=== PATIENT | female | born 1980 | race Caucasian/White ===

== ENCOUNTER 2016-05-16 18:12 | Emergency (ER) | payer OTHER ==
[2016-05-16] MEDS ORDERED: NITROFURANTOIN (MACROBID) 100 MG CAP As Ordered ONE (20:53)
--- NOTE | 2016-05-16 21:02 | EDDOCDS ---
Nurse's Notes [facility] Name: Marleny Bazan Age: 35 yrs Sex: Female : 1980 Arrival Date: 05/16/2016 Time: 18:12 Bed TR7 Private MD: DUY MENDEZ Diagnosis: Urinary tract infection, site not specified; related conditions, unspecified, first trimester Presentation: 05/16 18:18 Presenting complaint: Patient states: Patient states that she has been cramping and jmb spotting for the past four days. Patient reports also being late for her period. Risk factors: the patient reports a small or scant amount of vaginal bleeding. Adult Sepsis Screening: The patient does not have new or worsening altered mentation. Patient's respiratory rate is less than 22. Systolic blood pressure is greater than 100. Patient has a qSOFA score of 0- Negative Sepsis Screen. Suicide/Homicide risk assessment- the patient denies having any suicidal and/or homicidal ideations and does not present with any other emotional, behavioral or mental health complaints. Status: Patient is not a facility service manager or dependent. Transition of care: patient was not received from another setting of care. 18:18 Acuity: YANCY Level 3 b 18:18 Method Of Arrival: Walkin/Carried/Asstd [facility] Triage Assessment: 18:18 General: Appears in no apparent distress. General: Behavior is appropriate for age, jmb cooperative. Pain: Location: abdomen Pain currently is 6 out of 10 on a pain scale. HIV screening NA for this visit Offered previously. Neurological: Oriented to person, place, time, Speech is normal, Facial symmetry appears normal, Facial symmetry: tongue is midline. Respiratory: Airway is patent Respiratory effort is even, Respiratory pattern is regular. GI: Abdomen is non- distended. Derm: Skin is pink, warm & dry. Musculoskeletal: Range of motion intact in all extremities. 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 none - PMHx: back pain; - PSHx: Appendectomy; - Social history: Smoking status: Patient uses tobacco products, light tobacco smoker. No barriers to communication noted, The patient speaks fluent Hungarian, Speaks appropriately for age. - Family history: Not pertinent. - : The pt / caregiver states he / she is not on anticoagulants. Home medication list is obtained from the patient. - Exposure Risk Screening:: None identified. Screenin:58 Screening information is obtained from the patient. Fall risk: No risks identified. ms18 Assistance ADL's: requires no assistance with activities of daily living. Abuse/DV Screen: The patient / caregiver reports he/she is: not in a situation that causes fear, pain or injury. Nutritional screening: No deficits noted. Advance Directives: There is no living will. home support is adequate. Assessment: 20:58 General: Appears in no apparent distress, comfortable, Behavior is appropriate for age, ms18 cooperative, pleasant. Pain: Denies pain. Neurological: Level of Consciousness is awake, alert, obeys commands, Oriented to person, place, time. Respiratory: Airway is patent Respiratory effort is even, unlabored. GI: Abdomen is non- distended Bowel sounds present X 4 quads. Abd is soft X 4 quads. Derm: Skin is pink, warm & dry. Vital Signs: 18:14 BP 139 / 81; Pulse 117; Resp 18; Temp 98.9; Pulse Ox 100% ; Weight 95.25 kg; Height 5 elp ft. 3 in. (160.02 cm); Pain 6/10; 20:58 BP 132 / 80; Pulse 97; Resp 18; Pulse Ox 99% ; Pain 0/10; ms18 18:14 Body Mass Index 37.20 (95.25 kg, 160.02 cm) [facility] Vitals: 18:14 Log In Time: May 16, 2016 at 18:12. [facility] ED Course: 18:13 Patient visited by Eryn Silva PCA. elp 18:13 Patient moved to Waiting elp 18:14 DUY MENDEZ is Private Physician. elp 18:14 Patient moved to Pre RCE elp 18:16 Patient visited by Eryn Silva PCA. elp 18:18 Triage Initiated jmb 20:03 Patient moved to Triage 1 rs6 20:11 Urine Culture Sent. jmb 20:11 UA Sent. jmb 20:22 David Branch PA is PHCP. mo1 20:22 Jerod Mei DO is Attending Physician. mo1 20:49 Patient visited by Halina Diaz RN. ms18 20:49 Patient visited by David Branch PA. mo1 20:50 DUY MENDEZ is Referral Physician. mo1 20:50 Fabio Sanders MD is Referral Physician. mo1 20:57 Patient moved to TR7 [facility] 20:58 The patient / caregiver is instructed regarding the plan of care and ED course. Patient ms18 has correct armband on for positive identification. Property sent home with patient. :Personal belongings accompany Pt. 20:58 No IV's were initiated during this patient's visit. No procedures done that require ms18 assistance. Administered Medications: 20:57 Drug: Nitrofurantoin 100 mg Route: PO; ms18 20:57 Follow up: Response: Pt left department before re-evaluation is appropriate ms18 Point of Care Testing: Urine : 20:11 hCG Reading: Positive; Control Reading: Positive; [facility] Ranges: Order Results: Lab Order: UA; SPEC'M 05/16/16 20:07 Test: APPEARANCE, URINE; Value: HAZY; Range: CLEAR; Status: F Test: COLOR, URINE; Value: YELLOW; Range: YELLOW; Status: F Test: PH,URINE; Value: 5.0; Range: 5.0-9.0; Units: UNITS; Status: F Test: SPECIFIC GRAVITY URINE AUTO; Value: 1.031; Range: 1.002-1.035; Status: F Test: PROTEIN, URINE AUTO; Value: NEGATIVE; Range: NEGATIVE; Units: mg/dL; Status: F Test: GLUCOSE, URINE (UA) AUTO; Value: NEGATIVE; Range: NEGATIVE; Units: mg/dL; Status: F Test: KETONE, URINE AUTO; Value: NEGATIVE; Range: NEGATIVE; Units: mg/dL; Status: F Test: UROBILINOGEN, URINE AUTO; Value: 0.2; Range: 0.0-2.0; Units: mg/dL; Status: F Test: BILIRUBIN, URINE AUTO; Value: NEGATIVE; Range: NEGATIVE; Status: F Test: NITRITE, URINE AUTO; Value: NEGATIVE; Range: NEGATIVE; Status: F Test: LEUKOCYTE ESTERASE, URINE AUTO; Value: TRACE; Range: NEGATIVE; Abnormal: Above high normal; Status: F Test: BLOOD, URINE BLOOD; Value: NEGATIVE; Range: NEGATIVE; Status: F Test: WBC, URINE AUTO; Value: 15; Range: 0-3; Abnormal: Above high normal; Units: /HPF; Status: F Test: RBC, URINE AUTO; Value: 1; Range: 0-3; Units: /HPF; Status: F Test: BACTERIA, URINE AUTO; Value: NEGATIVE; Range: NEGATIVE; Status: F Test: SQUAMOUS EPITHELIAL CELL UR AU; Value: 1; Range: 0-6; Units: /HPF; Status: F Test: MUCUS, URINE; Value: SMALL; Range: NEGATIVE; Status: F Test: HYALINE CAST, URINE AUTO; Value: 0; Range: 0-1; Units: /LPF; Status: F Outcome: 20:50 Discharge ordered by Provider. mo1 20:58 Discharge Assessment: Patient awake, alert and oriented x 3. No cognitive and/or ms18 functional deficits noted. Patient verbalized understanding of disposition instructions. patient administered narcotics - no. The following High Risk Discharge criteria are identified: None. Discharged to home ambulatory. Condition: good Condition: stable Condition: improved. Discharge instructions given to patient, Instructed on discharge instructions, follow up and referral plans. medication usage, Demonstrated understanding of instructions, medications, Pt was receptive of discharge instructions/ teaching. Prescriptions given X 1. No special radiology studies were completed. 21:01 Patient left the ED. ms18 Signatures: David Branch PA PA mo1 Eryn Silva, NEWS LIBRARY DIRECTOR NEWS LIBRARY DIRECTOR Raza BowserRN RN Halina Damian RN RN ms18 Glo Enriquez, NEWS LIBRARY DIRECTOR NEWS LIBRARY DIRECTOR rs6 MTDD
--- NOTE | 2016-05-16 21:02 | EDDOCDS ---
Physician Documentation [facility] Name: Marleny Bazan Age: 35 yrs Sex: Female : 1980 Arrival Date: 05/16/2016 Time: 18:12 Bed TR7 Private MD: DUY MENDEZ Disposition: 05/16/16 20:50 Discharged to Home/Self Care. Impression: Urinary tract infection, site not specified, related conditions, unspecified, first trimester. - Condition is Stable. - Discharge Instructions: First Trimester of , Urinary Tract Infection. - Prescriptions for Macrobid 100 mg Oral Capsule - take 100 milligram by ORAL route every 12 hours for 10 days; 20 capsule. - Medication Reconciliation, Local Pharmacy Hours form. - Follow up: DUY MENDEZ; When: Call to arrange an appointment; Reason: Recheck today's complaints, Continuance of care. Follow up: Fabio Sanders MD; When: Call to arrange an appointment; Reason: Recheck today's complaints, Continuance of care. - Problem is new. - Symptoms are unchanged. Historical: - Home Meds: 1. none - PMHx: back pain; - PSHx: Appendectomy; - Social history: Smoking status: Patient uses tobacco products, light tobacco smoker. No barriers to communication noted, The patient speaks fluent Chadian, Speaks appropriately for age. - Family history: Not pertinent. - : The pt / caregiver states he / she is not on anticoagulants. Home medication list is obtained from the patient. - Exposure Risk Screening:: None identified. 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 3 in. (160.02 cm); Pain 6/10; 20:58 BP 132 / 80; Pulse 97; Resp 18; Pulse Ox 99% ; Pain 0/10; ms18 18:14 Body Mass Index 37.20 (95.25 kg, 160.02 cm) elp MDM: 20:05 UCG by Nursing ordered. jmb 20:06 UA Ordered. EDMS 20:06 Urine Culture Ordered. EDMS 20:43 UA Reviewed. mo1 20:46 Nitrofurantoin 100 mg PO once ordered. mo1 20:58 Financial registration complete. zo Point of Care Testing: Urine : 20:11 hCG Reading: Positive; Control Reading: Positive; jhony Ranges: Administered Medications: 20:57 Drug: Nitrofurantoin 100 mg Route: PO; ms18 20:57 Follow up: Response: Pt left department before re-evaluation is appropriate ms18 Signatures: Dispatcher [employer] EDRadha Tena Michael, PA PA mo1 Raza Bowling,RN RN jmb Halina Diaz RN RN ms18 MTDD
--- NOTE | 2016-05-18 22:02 | EDDOCDS ---
Nurse's Notes [facility] Name: Marleny Bazan Age: 35 yrs Sex: Female : 1980 Arrival Date: 05/16/2016 Time: 18:12 Bed TR7 Private MD: DUY MENDEZ Diagnosis: Urinary tract infection, site not specified; related conditions, unspecified, first trimester Presentation: 05/16 18:18 Presenting complaint: Patient states: Patient states that she has been cramping and jmb spotting for the past four days. Patient reports also being late for her period. Risk factors: the patient reports a small or scant amount of vaginal bleeding. Adult Sepsis Screening: The patient does not have new or worsening altered mentation. Patient's respiratory rate is less than 22. Systolic blood pressure is greater than 100. Patient has a qSOFA score of 0- Negative Sepsis Screen. Suicide/Homicide risk assessment- the patient denies having any suicidal and/or homicidal ideations and does not present with any other emotional, behavioral or mental health complaints. 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 Transition of care: patient was not received from another setting of care. 18:18 Acuity: YANCY Level 3 b 18:18 Method Of Arrival: Walkin/Carried/Asstd [facility] Triage Assessment: 18:18 General: Appears in no apparent distress. General: Behavior is appropriate for age, jmb cooperative. Pain: Location: abdomen Pain currently is 6 out of 10 on a pain scale. HIV screening NA for this visit Offered previously. Neurological: Oriented to person, place, time, Speech is normal, Facial symmetry appears normal, Facial symmetry: tongue is midline. Respiratory: Airway is patent Respiratory effort is even, Respiratory pattern is regular. GI: Abdomen is non- distended. Derm: Skin is pink, warm & dry. Musculoskeletal: Range of motion intact in all extremities. 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 none - PMHx: back pain; - PSHx: Appendectomy; - Social history: Smoking status: Patient uses tobacco products, light tobacco smoker. No barriers to communication noted, The patient speaks fluent American, Speaks appropriately for age. - Family history: Not pertinent. - : The pt / caregiver states he / she is not on anticoagulants. Home medication list is obtained from the patient. - Exposure Risk Screening:: None identified. Screenin:58 Screening information is obtained from the patient. Fall risk: No risks identified. ms18 Assistance ADL's: requires no assistance with activities of daily living. Abuse/DV Screen: The patient / caregiver reports he/she is: not in a situation that causes fear, pain or injury. Nutritional screening: No deficits noted. Advance Directives: There is no living will. home support is adequate. Assessment: 20:58 General: Appears in no apparent distress, comfortable, Behavior is appropriate for age, ms18 cooperative, pleasant. Pain: Denies pain. Neurological: Level of Consciousness is awake, alert, obeys commands, Oriented to person, place, time. Respiratory: Airway is patent Respiratory effort is even, unlabored. GI: Abdomen is non- distended Bowel sounds present X 4 quads. Abd is soft X 4 quads. Derm: Skin is pink, warm & dry. Vital Signs: 18:14 BP 139 / 81; Pulse 117; Resp 18; Temp 98.9; Pulse Ox 100% ; Weight 95.25 kg; Height 5 elp ft. 3 in. (160.02 cm); Pain 6/10; 20:58 BP 132 / 80; Pulse 97; Resp 18; Pulse Ox 99% ; Pain 0/10; ms18 18:14 Body Mass Index 37.20 (95.25 kg, 160.02 cm) [facility] Vitals: 18:14 Log In Time: May 16, 2016 at 18:12. [facility] ED Course: 18:13 Patient visited by Eryn Silva PCA. elp 18:13 Patient moved to Waiting elp 18:14 DUY MENDEZ is Private Physician. elp 18:14 Patient moved to Pre RCE elp 18:16 Patient visited by Eryn Silva PCA. elp 18:18 Triage Initiated jmb 20:03 Patient moved to Triage 1 rs6 20:11 Urine Culture Sent. jmb 20:11 UA Sent. jmb 20:22 David Branch PA is PHCP. mo1 20:22 Jerod Mei DO is Attending Physician. mo1 20:49 Patient visited by Halina Diaz RN. ms18 20:49 Patient visited by David Branch PA. mo1 20:50 DUY MENDEZ is Referral Physician. mo1 20:50 Fabio Sanders MD is Referral Physician. mo1 20:57 Patient moved to TR7 [facility] 20:58 The patient / caregiver is instructed regarding the plan of care and ED course. Patient ms18 has correct armband on for positive identification. Property sent home with patient. :Personal belongings accompany Pt. 20:58 No IV's were initiated during this patient's visit. No procedures done that require ms18 assistance. 21:10 [facility] Payment Agreement was scanned into [employer] and attached to record. zo 05/17 08:16 T-Sheet-- Draft Copy was scanned into [employer] and attached to record. seh Administered Medications: 05/16 20:57 Drug: Nitrofurantoin 100 mg Route: PO; ms18 20:57 Follow up: Response: Pt left department before re-evaluation is appropriate ms18 Point of Care Testing: Urine : 20:11 hCG Reading: Positive; Control Reading: Positive; jmb Ranges: Order Results: Lab Order: UA; SPEC'M 05/16/16 20:07 Test: APPEARANCE, URINE; Value: HAZY; Range: CLEAR; Status: F Test: COLOR, URINE; Value: YELLOW; Range: YELLOW; Status: F Test: PH,URINE; Value: 5.0; Range: 5.0-9.0; Units: UNITS; Status: F Test: SPECIFIC GRAVITY URINE AUTO; Value: 1.031; Range: 1.002-1.035; Status: F Test: PROTEIN, URINE AUTO; Value: NEGATIVE; Range: NEGATIVE; Units: mg/dL; Status: F Test: GLUCOSE, URINE (UA) AUTO; Value: NEGATIVE; Range: NEGATIVE; Units: mg/dL; Status: F Test: KETONE, URINE AUTO; Value: NEGATIVE; Range: NEGATIVE; Units: mg/dL; Status: F Test: UROBILINOGEN, URINE AUTO; Value: 0.2; Range: 0.0-2.0; Units: mg/dL; Status: F Test: BILIRUBIN, URINE AUTO; Value: NEGATIVE; Range: NEGATIVE; Status: F Test: NITRITE, URINE AUTO; Value: NEGATIVE; Range: NEGATIVE; Status: F Test: LEUKOCYTE ESTERASE, URINE AUTO; Value: TRACE; Range: NEGATIVE; Abnormal: Above high normal; Status: F Test: BLOOD, URINE BLOOD; Value: NEGATIVE; Range: NEGATIVE; Status: F Test: WBC, URINE AUTO; Value: 15; Range: 0-3; Abnormal: Above high normal; Units: /HPF; Status: F Test: RBC, URINE AUTO; Value: 1; Range: 0-3; Units: /HPF; Status: F Test: BACTERIA, URINE AUTO; Value: NEGATIVE; Range: NEGATIVE; Status: F Test: SQUAMOUS EPITHELIAL CELL UR AU; Value: 1; Range: 0-6; Units: /HPF; Status: F Test: MUCUS, URINE; Value: SMALL; Range: NEGATIVE; Status: F Test: HYALINE CAST, URINE AUTO; Value: 0; Range: 0-1; Units: /LPF; Status: F Lab Order: Urine Culture; SPEC'M 05/16/16 20:07 Test: URINE CULTURE; Value: URINE CULTURE RESULT NO GROWTH CLINICAL SIGNIFICANCE 1 ORGANISM; Status: F Outcome: 20:50 Discharge ordered by Provider. mo1 20:58 Discharge Assessment: Patient awake, alert and oriented x 3. No cognitive and/or ms18 functional deficits noted. Patient verbalized understanding of disposition instructions. patient administered narcotics - no. The following High Risk Discharge criteria are identified: None. Discharged to home ambulatory. Condition: good Condition: stable Condition: improved. Discharge instructions given to patient, Instructed on discharge instructions, follow up and referral plans. medication usage, Demonstrated understanding of instructions, medications, Pt was receptive of discharge instructions/ teaching. Prescriptions given X 1. No special radiology studies were completed. 21:01 Patient left the ED. ms18 Signatures: Radha Cerna Michael, PA PA mo1 Eyrn Silva, AUTO ACCESSORIES INSTALLER AUTO ACCESSORIES INSTALLER Raza Bowser,RN RN Halina Damian RN RN ms18 Glo Enriquez, AUTO ACCESSORIES INSTALLER AUTO ACCESSORIES INSTALLER rs6 a[place] Chart Complete MTDD
--- NOTE | 2016-05-18 22:02 | EDDOCDS ---
Physician Documentation [facility] Name: Marleny Bazan Age: 35 yrs Sex: Female : 1980 Arrival Date: 05/16/2016 Time: 18:12 Bed TR7 Private MD: DUY MENDEZ Disposition: 05/16/16 20:50 Discharged to Home/Self Care. Impression: Urinary tract infection, site not specified, related conditions, unspecified, first trimester. - Condition is Stable. - Discharge Instructions: First Trimester of , Urinary Tract Infection. - Prescriptions for Macrobid 100 mg Oral Capsule - take 100 milligram by ORAL route every 12 hours for 10 days; 20 capsule. - Medication Reconciliation, Local Pharmacy Hours form. - Follow up: DUY MENDEZ; When: Call to arrange an appointment; Reason: Recheck today's complaints, Continuance of care. Follow up: Fabio Sanders MD; When: Call to arrange an appointment; Reason: Recheck today's complaints, Continuance of care. - Problem is new. - Symptoms are unchanged. Historical: - Home Meds: 1. none - PMHx: back pain; - PSHx: Appendectomy; - Social history: Smoking status: Patient uses tobacco products, light tobacco smoker. No barriers to communication noted, The patient speaks fluent Mongolian, Speaks appropriately for age. - Family history: Not pertinent. - : The pt / caregiver states he / she is not on anticoagulants. Home medication list is obtained from the patient. - Exposure Risk Screening:: None identified. 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 3 in. (160.02 cm); Pain 6/10; 20:58 BP 132 / 80; Pulse 97; Resp 18; Pulse Ox 99% ; Pain 0/10; ms18 18:14 Body Mass Index 37.20 (95.25 kg, 160.02 cm) elp MDM: 20:05 UCG by Nursing ordered. jmb 20:06 UA Ordered. EDMS 20:06 Urine Culture Ordered. EDMS 20:43 UA Reviewed. mo1 20:46 Nitrofurantoin 100 mg PO once ordered. mo1 20:58 Financial registration complete. zo 21:10 [facility] Payment Agreement was scanned into [employer] and attached to record. zo 05/17 08:16 T-Sheet-- Draft Copy was scanned into [employer] and attached to record. [facility] Point of Care Testing: Urine : 05/16 20:11 hCG Reading: Positive; Control Reading: Positive; jhony Ranges: Administered Medications: 20:57 Drug: Nitrofurantoin 100 mg Route: PO; ms18 20:57 Follow up: Response: Pt left department before re-evaluation is appropriate ms18 Signatures: Dispatcher [employer] EDRadha Tena Michael, PA PA mo1 Raza Bowling RN RN Halina Damian RN RN ms18 [place]ty [place] The chart was reviewed and I authenticate all verbal orders and agree with the evaluation and treatment provided.Attachments: 21:10 [facility] Payment Agreement zo 05/17 08:16 T-Sheet-- Draft Copy [facility] Chart Complete MTDD
--- NOTE | 2016-05-18 22:02 | EDDOCDS ---
Physician Documentation [facility] Name: Marleny Bazan Age: 35 yrs Sex: Female : 1980 Arrival Date: 05/16/2016 Time: 18:12 Bed TR7 Private MD: DUY MENDEZ Disposition: 05/16/16 20:50 Discharged to Home/Self Care. Impression: Urinary tract infection, site not specified, related conditions, unspecified, first trimester. - Condition is Stable. - Discharge Instructions: First Trimester of , Urinary Tract Infection. - Prescriptions for Macrobid 100 mg Oral Capsule - take 100 milligram by ORAL route every 12 hours for 10 days; 20 capsule. - Medication Reconciliation, Local Pharmacy Hours form. - Follow up: DUY MENDEZ; When: Call to arrange an appointment; Reason: Recheck today's complaints, Continuance of care. Follow up: Fabio Sanders MD; When: Call to arrange an appointment; Reason: Recheck today's complaints, Continuance of care. - Problem is new. - Symptoms are unchanged. Historical: - Home Meds: 1. none - PMHx: back pain; - PSHx: Appendectomy; - Social history: Smoking status: Patient uses tobacco products, light tobacco smoker. No barriers to communication noted, The patient speaks fluent Burundian, Speaks appropriately for age. - Family history: Not pertinent. - : The pt / caregiver states he / she is not on anticoagulants. Home medication list is obtained from the patient. - Exposure Risk Screening:: None identified. 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 3 in. (160.02 cm); Pain 6/10; 20:58 BP 132 / 80; Pulse 97; Resp 18; Pulse Ox 99% ; Pain 0/10; ms18 18:14 Body Mass Index 37.20 (95.25 kg, 160.02 cm) elp MDM: 20:05 UCG by Nursing ordered. jmb 20:06 UA Ordered. EDMS 20:06 Urine Culture Ordered. EDMS 20:43 UA Reviewed. mo1 20:46 Nitrofurantoin 100 mg PO once ordered. mo1 20:58 Financial registration complete. zo 21:10 [facility] Payment Agreement was scanned into [employer] and attached to record. zo 05/17 08:16 T-Sheet-- Draft Copy was scanned into [employer] and attached to record. [facility] Point of Care Testing: Urine : 05/16 20:11 hCG Reading: Positive; Control Reading: Positive; jhony Ranges: Administered Medications: 20:57 Drug: Nitrofurantoin 100 mg Route: PO; ms18 20:57 Follow up: Response: Pt left department before re-evaluation is appropriate ms18 Signatures: Dispatcher [employer] EDRadha Tena Michael, PA PA mo1 Raza Bowling RN RN Halina Damian RN RN ms18 Katty [place] The chart was reviewed and I authenticate all verbal orders and agree with the evaluation and treatment provided.Attachments: 21:10 [facility] Payment Agreement zo 05/17 08:16 T-Sheet-- Draft Copy [facility] Chart Complete MTDD
== END 2016-05-16 21:01 | disposition home or self-care (01) ==
LOC: M ED 18:12
DX: N30.01 Acute cystitis with hematuria (principal); R10.2 Pelvic and perineal pain; F17.200 Nicotine dependence, unspecified, uncomplicated; Z90.89 Acquired absence of other organs; Z32.01 Encounter for pregnancy test, result positive

== ENCOUNTER 2016-05-19 13:18 | Emergency (ER) | payer OTHER ==
[2016-05-19 15:35] LABS: MEAN CORPUSCULAR HEMOGLOBIN 32.4 pg (27.0-33.0); MEAN CORPUSCULAR HGB CONC 35.2 g/dl (32.0-36.5); MEAN CORPUSCULAR VOLUME 91.8 fl (80.0-96.0); RED CELL DISTRIBUTION WIDTH 12.3 % (11.5-14.5); WHITE BLOOD COUNT 4.8 K/mm3 (4.0-10.0)
--- NOTE | 2016-05-19 15:49 | REP ---
First trimester obstetric sonography: History: Vaginal bleeding. Findings: Transabdominal and transvaginal scanning are performed. There is an intrauterine gestational sac seen. By mean sac size diameter of 9 mm this would correspond with a 4-week 6-day gestation. There is a yolk sac visible within the gestational sac, but no embryonic pole is seen. No free fluid is seen in the cul-de-sac. The right ovary measures 2.8 x 1.6 x 1.8 cm and has normal Doppler flow. It contains a 1.2 x 1.0 x 0.9 cm hypoechoic cyst consistent with a corpus luteum. A normal left ovary is seen with dimensions of 2.6 x 1.6 x 1.6 cm and normal Doppler flow. Impression: Intrauterine gestational sac at 4-week 6-day size. There is a yolk sac seen, but no embryonic pole seen. viability cannot be confirmed. Clinical and possibly sonographic followup suggested. Signed by Spenser Levine MD 05/19/2016 04:26 P
--- NOTE | 2016-05-19 17:30 | EDDOCDS ---
Physician Documentation [facility] Name: Marleny Bazan Age: 35 yrs Sex: Female : 1980 Arrival Date: 05/19/2016 Time: 13:18 Bed 21 Private MD: NO PRIMARY PHYSICIAN, . Disposition: 05/19/16 16:50 Discharged to Home/Self Care. Impression: Threatened . - Condition is Stable. - Discharge Instructions: Threatened Miscarriage, Pelvic Rest. - Prescriptions for Vitamin 27- 0.8 mg Oral Tablet - take 1 tablet by ORAL route once daily; 60 tablet. - Medication Reconciliation, Local Pharmacy Hours form. - Follow up: Fabio Sanders MD; When: Call to arrange an appointment; Reason: Recheck today's complaints, Continuance of care. - Problem is an ongoing problem. - Symptoms are unchanged. - Notes: Have your blood work done on . Results will be sent to Dr Sanders Return to the ED for severe bleeding, pain, fever or any other concerns Historical: - Allergies: no known allergies; - Home Meds: 1. Macrobid 100 mg Oral cap 1 cap every 12 hours - PMHx: back pain; - PSHx: Appendectomy; - Social history: Smoking status: Patient uses tobacco products, current some day smoker. No barriers to communication noted, The patient speaks fluent Slovenian, Speaks appropriately for age. - Family history: Not pertinent. - : The pt / caregiver states he / she is not on anticoagulants. Home medication list is obtained from the patient. - Exposure Risk Screening:: None identified. 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 3 in. (160.02 cm); Pain 5/10; 17:26 BP 131 / 88; Pulse 87; Resp 16; Temp 98.2; Pulse Ox 99% ; Pain 0/10; cjh 13:20 Body Mass Index 37.73 (96.62 kg, 160.02 cm) cmb MDM: 14:33 Undress patient appropriately for examination ordered. le 14:33 Set up pelvic ordered. le 14:34 Complete Blood Count Ordered. EDMS 14:34 Hcg, Serum Quantitative Ordered. EDMS 14:34 GC & Chlamydia Amplification Ordered. EDMS 14:34 Wet Prep Ordered. EDMS 14:34 US 1st trimester Ordered. EDMS 14:34 Type & Screen Ordered. EDMS 15:05 TRANSVAGINAL US Ordered. EDMS 15:05 DUPLEX SCAN LIMITED (DOPPLER) Ordered. EDMS 15:38 Financial registration complete. gjb 16:44 Complete Blood Count Reviewed. le 16:44 Hcg, Serum Quantitative Reviewed. le 16:44 Type & Screen Reviewed. le 16:44 Wet Prep Reviewed. le 16:44 US 1st trimester Reviewed. le 16:44 TRANSVAGINAL US Reviewed. le 16:44 DUPLEX SCAN LIMITED (DOPPLER) Reviewed. le Signatures: Dispatcher [employer] Winnie Vallejo, [place] Rush RN, MIXER OPERATOR MIXER OPERATOR Liz Clifford RN RN [facility] Rocío Chen AARON
--- NOTE | 2016-05-19 17:30 | EDDOCDS ---
Nurse's Notes [facility] Name: Marleny Bazan Age: 35 yrs Sex: Female : 1980 Arrival Date: 05/19/2016 Time: 13:18 Bed 21 Private MD: NO PRIMARY PHYSICIAN, . Diagnosis: Threatened Presentation: 05/19 13:27 Presenting complaint: Patient states: seen here sat and dx with UTI and found out was srm . has been having spotting now turning darker in color. cramping also since sat. Risk factors: The patient reports no loss of conciousness prior to arrival. This patient has not had a hysterectomy. This patient has not begun menopause. Adult Sepsis Screening: The patient does not have new or worsening altered mentation. Patient's respiratory rate is less than 22. Systolic blood pressure is greater than 100. Patient has a qSOFA score of 0- Negative Sepsis Screen. Suicide/Homicide risk assessment- the patient denies having any suicidal and/or homicidal ideations and does not present with any other emotional, behavioral or mental health complaints. 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 Transition of care: patient was not received from another setting of care. 13:27 Acuity: YANCY Level 3 srm 13:27 Method Of Arrival: Walkin/Carried/Asstd srm Triage Assessment: 13:28 General: Appears in no apparent distress, Behavior is appropriate for age, cooperative. srm Pain: Pain currently is 5 out of 10 on a pain scale. HIV screening NA for this visit Offered previously. : Reports vaginal bleeding that is spotty. 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 Macrobid 100 mg Oral cap 1 cap every 12 hours - PMHx: back pain; - PSHx: Appendectomy; - Social history: Smoking status: Patient uses tobacco products, current some day smoker. No barriers to communication noted, The patient speaks fluent Guamanian, Speaks appropriately for age. - Family history: Not pertinent. - : The pt / caregiver states he / she is not on anticoagulants. Home medication list is obtained from the patient. - Exposure Risk Screening:: None identified. Screenin:30 Screening information is obtained from the patient. Fall risk: No risks identified. [facility] Assistance ADL's: requires no assistance with activities of daily living. Abuse/DV Screen: The patient / caregiver reports he/she is: not in a situation that causes fear, pain or injury. Nutritional screening: No deficits noted. Advance Directives: There is no active DNR order. home support is adequate. Assessment: 13:45 General: Appears in no apparent distress, comfortable, Behavior is appropriate for age, [facility] cooperative. Pain: Location: back Pain currently is 5 out of 10 on a pain scale. Respiratory: Airway is patent Respiratory effort is even, unlabored, Respiratory pattern is regular, symmetrical. : Urine is clear. : Reports vaginal bleeding that is spotty. Derm: Skin is pink, warm & dry. Musculoskeletal: Range of motion intact in all extremities. 14:30 General: pelvic exam by ENGRAVER LETTERING, tolerated without complaint or difficulty. [facility] 15:11 General: Appears in no apparent distress, comfortable, Behavior is appropriate for age, [facility] cooperative, returned from ultrasound, tolerated well, no new problems or complaints. 16:00 General: resting queitly awaiting results, denies needs at present. [facility] 17:26 General: Appears in no apparent distress, comfortable, Behavior is appropriate for age, [facility] cooperative. General: reviewed discharge instructions with patient, encouraged and answered questions, denies further needs, declines offer of additional assistance. Pain: Denies pain. Neurological: Level of Consciousness is awake, alert, Oriented to person, place, time. Respiratory: Airway is patent Respiratory effort is even, unlabored, Respiratory pattern is regular, symmetrical. Derm: Skin is pink, warm & dry. Vital Signs: 13:20 BP 142 / 72; Pulse 91; Resp 16; Temp 98.4(O); Pulse Ox 100% ; Weight 96.62 kg; Height 5 cmb ft. 3 in. (160.02 cm); Pain 5/10; 17:26 BP 131 / 88; Pulse 87; Resp 16; Temp 98.2; Pulse Ox 99% ; Pain 0/10; [facility] 13:20 Body Mass Index 37.73 (96.62 kg, 160.02 cm) cmb Vitals: 13:20 Log In Time: May 19, 2016 at 13:18. cmb ED Course: 13:19 Patient visited by Maria Guadalupe Da Silva. cmb 13:19 Patient moved to Waiting cmb 13:20 NO PRIMARY PHYSICIAN, . is Private Physician. cmb 13:24 Patient moved to Pre RCE cmb 13:28 Triage Initiated srm 13:29 [place] Pappas F[facility] le 13:30 Patient moved to 21 srm 14:20 Patient visited by Zaira Vega PCA. ct3 14:25 Patient visited by [place] Pappas FNP. le 14:30 Assist provider with pelvic exam: Set up pelvic tray. Specimens sent to lab. Performed cjh by [place] HERNANDEZ Patient tolerated well. 14:33 Patient visited by [place] Pappas FNP. le 14:42 GC & Chlamydia Amplification Sent. ct3 14:42 Wet Prep Sent. ct3 15:11 Complete Blood Count Sent. cjh 15:11 Hcg, Serum Quantitative Sent. cjh 15:11 Type & Screen Sent. cjh 15:20 Patient visited by Liz Nicole RN. cjh 16:28 Patient visited by Zaira Vega PCA. ct3 16:33 US 1st trimester Returned. EDMS 16:33 TRANSVAGINAL US Returned. EDMS 16:33 DUPLEX SCAN LIMITED (DOPPLER) Returned. EDMS 16:50 Fabio Sanders MD is Referral Physician. le 17:26 The patient / caregiver is instructed regarding the plan of care and ED course. cjh 17:26 No IV's were initiated during this patient's visit. cjh 17:27 US 1st trimester Returned. EDMS 17:27 TRANSVAGINAL US Returned. EDMS 17:27 DUPLEX SCAN LIMITED (DOPPLER) Returned. EDMS Order Results: Lab Order: Complete Blood Count; SPEC'M 05/19/16 14:48 Test: WHITE BLOOD COUNT; Value: 4.8; Range: 4.0-10.0; Units: K/mm3; Status: F Test: RED BLOOD COUNT; Value: 4.02; Range: 4.00-5.40; Units: M/mm3; Status: F Test: HEMOGLOBIN; Value: 13.0; Range: 12.0-16.0; Units: g/dl; Status: F Test: HEMATOCRIT; Value: 36.9; Range: 36.0-47.0; Units: %; Status: F Test: MEAN CORPUSCULAR VOLUME; Value: 91.8; Range: 80.0-96.0; Units: fl; Status: F Test: MEAN CORPUSCULAR HEMOGLOBIN; Value: 32.4; Range: 27.0-33.0; Units: pg; Status: F Test: MEAN CORPUSCULAR HGB CONC; Value: 35.2; Range: 32.0-36.5; Units: g/dl; Status: F Test: RED CELL DISTRIBUTION WIDTH; Value: 12.3; Range: 11.5-14.5; Units: %; Status: F Test: PLATELET COUNT, AUTOMATED; Value: 291; Range: 150-450; Units: k/mm3; Status: F Lab Order: Hcg, Serum Quantitative; SPEC'M 05/19/16 14:48 Test: HCG, SERUM QUANTITATIVE; Value: 4451; Units: MIU/ML; Status: F Test Note: ; GESTATIONAL AGE APPROXIMATE HCG RANGE (MIU/ML) 0.2-1 WEEK 5-50 1-2 WEEKS 50-500 2-3 WEEKS 100-5,000 3-4 WEEKS 500-10,000 4-5 WEEKS 1,000-50,000 5-6 WEEKS 10,000-100,000 6-8 WEEKS 15,000-200,000 2-3 MONTHS 10,000-100,000 NON FEMALES LESS THAN 3.0 Patient samples may contain human heterophilic antibodies that could react with immunoassays to give falsely elevated or depressed results. This assay has been designed to minimize interference from heterophilic antibodies. Elevated hCG levels have also been associated with trophoblastic disease and nontrophoblastic neoplasms. The possibility of having these diseases should be considered before a diagnosis of is made. This test is not intended for use as a surrogate marker for aiding in the diagnosis or monitoring the treatment of cancer patients. Siemens Jamn methodology. Lab Order: Type & Screen; SPEC'M 05/19/16 14:48 Test: BLOOD TYPE; Value: O POS; Status: F Test: AB SCREEN (INDIRECT AYAN)GEL; Value: NEGATIVE; Status: F Lab Order: Wet Prep; SPEC'M 05/19/16 14:43 Test: WET PREP; Value: WET PREP RESULT; Status: F Test: WET PREP; Value: MODERATE EPITHELIAL CELLS PRESENT; Status: F Test: WET PREP; Value: MANY WBC; Status: F Test: WET PREP; Value: MANY SHORT RODS PRESENT; Status: F Test: WET PREP; Value: MODERATE YEAST LIKE ORGANISM PRESENT; Status: F Test: WET PREP; Value: MODERATE CLUE CELLS PRESENT; Status: F Lab Order: GC & Chlamydia Amplification; SPEC'M 05/19/16 14:43 Test: CHLAMYDIA DNA AMPLIFICATION; Value: NEGATIVE; Range: NEGATIVE; Status: F Test: GC DNA AMPLIFICATION; Value: NEGATIVE; Range: NEGATIVE; Status: F Radiology Order: US 1st trimester Test: US 1st trimester REASON FOR EXAMINATION: Bleeding; First trimester obstetric sonography:; ; History: Vaginal bleeding.; ; Findings: Transabdominal and transvaginal scanning are performed. There is an; intrauterine gestational sac seen. By mean sac size diameter of 9 mm this would; correspond with a 4-week 6-day gestation. There is a yolk sac visible within the; gestational sac, but no embryonic pole is seen. No free fluid is seen in the; cul-de-sac. The right ovary measures 2.8 x 1.6 x 1.8 cm and has normal Doppler; flow. It contains a 1.2 x 1.0 x 0.9 cm hypoechoic cyst consistent with a corpus; luteum. A normal left ovary is seen with dimensions of 2.6 x 1.6 x 1.6 cm and; normal Doppler flow.; ; Impression:; ; Intrauterine gestational sac at 4-week 6-day size. There is a yolk sac seen, but; no embryonic pole seen. viability cannot be confirmed. Clinical and; possibly sonographic followup suggested.; ; ; Signed by; Spenser Levine MD 05/19/2016 04:26 P; Radiology Order: TRANSVAGINAL US Test: TRANSVAGINAL US REASON FOR EXAMINATION: EVAL OVARIES AND UTERUS; First trimester obstetric sonography:; ; History: Vaginal bleeding.; ; Findings: Transabdominal and transvaginal scanning are performed. There is an; intrauterine gestational sac seen. By mean sac size diameter of 9 mm this would; correspond with a 4-week 6-day gestation. There is a yolk sac visible within the; gestational sac, but no embryonic pole is seen. No free fluid is seen in the; cul-de-sac. The right ovary measures 2.8 x 1.6 x 1.8 cm and has normal Doppler; flow. It contains a 1.2 x 1.0 x 0.9 cm hypoechoic cyst consistent with a corpus; luteum. A normal left ovary is seen with dimensions of 2.6 x 1.6 x 1.6 cm and; normal Doppler flow.; ; Impression:; ; Intrauterine gestational sac at 4-week 6-day size. There is a yolk sac seen, but; no embryonic pole seen. viability cannot be confirmed. Clinical and; possibly sonographic followup suggested.; ; ; Signed by; Spenser Levine MD 05/19/2016 04:26 P; Radiology Order: DUPLEX SCAN LIMITED (DOPPLER) Test: DUPLEX SCAN LIMITED (DOPPLER) REASON FOR EXAMINATION: EVAL OVARIES AND UTERUS; First trimester obstetric sonography:; ; History: Vaginal bleeding.; ; Findings: Transabdominal and transvaginal scanning are performed. There is an; intrauterine gestational sac seen. By mean sac size diameter of 9 mm this would; correspond with a 4-week 6-day gestation. There is a yolk sac visible within the; gestational sac, but no embryonic pole is seen. No free fluid is seen in the; cul-de-sac. The right ovary measures 2.8 x 1.6 x 1.8 cm and has normal Doppler; flow. It contains a 1.2 x 1.0 x 0.9 cm hypoechoic cyst consistent with a corpus; luteum. A normal left ovary is seen with dimensions of 2.6 x 1.6 x 1.6 cm and; normal Doppler flow.; ; Impression:; ; Intrauterine gestational sac at 4-week 6-day size. There is a yolk sac seen, but; no embryonic pole seen. viability cannot be confirmed. Clinical and; possibly sonographic followup suggested.; ; ; Signed by; Spenser Levine MD 05/19/2016 04:26 P; Outcome: 16:50 Discharge ordered by Provider. le 17:26 Discharge Assessment: Patient awake, alert and oriented x 3. No cognitive and/or cjh functional deficits noted. Patient verbalized understanding of disposition instructions. patient administered narcotics - no. The following High Risk Discharge criteria are identified: None. Discharged to home ambulatory. Condition: good Condition: stable Condition: improved. Discharge instructions given to patient, Instructed on discharge instructions, follow up and referral plans. medication usage, Demonstrated understanding of instructions, medications, Pt was receptive of discharge instructions/ teaching. Prescriptions given X 1. Ultrasound Study completed. Property :Personal belongings accompany Pt. 17:29 Patient left the ED. [facility] Signatures: Dispatcher [employer] EDWinnie Cesar, DODIE STOLL [facility] [place] Pappas, MANAGER VIDEO MANAGER VIDEO Zaira Noguera, BALL ROLLING MACHINE OPERATOR BALL ROLLING MACHINE OPERATOR ct3 Liz Nicole RN RN [facility] Maria Guadalupe Da Silva cmb Corrections: (The following items were deleted from the chart) 13:24 13:20 Pulse 91bpm; Resp 16bpm; Pulse Ox 100%; Temp 98.4F Oral; 96.62 kg; Height 5 ft. 3 cmb in.; BMI: 37.7; Pain 5/10; cmb MTDD
--- NOTE | 2016-05-21 18:30 | EDDOCDS ---
Physician Documentation [facility] Name: Marleny Bazan Age: 35 yrs Sex: Female : 1980 Arrival Date: 05/19/2016 Time: 13:18 Bed 21 Private MD: NO PRIMARY PHYSICIAN, . Disposition: 05/19/16 16:50 Discharged to Home/Self Care. Impression: Threatened . - Condition is Stable. - Discharge Instructions: Threatened Miscarriage, Pelvic Rest. - Prescriptions for Vitamin 27- 0.8 mg Oral Tablet - take 1 tablet by ORAL route once daily; 60 tablet. - Medication Reconciliation, Local Pharmacy Hours form. - Follow up: Fabio Sanders MD; When: Call to arrange an appointment; Reason: Recheck today's complaints, Continuance of care. - Problem is an ongoing problem. - Symptoms are unchanged. - Notes: Have your blood work done on . Results will be sent to Dr Sanders Return to the ED for severe bleeding, pain, fever or any other concerns Historical: - Allergies: no known allergies; - Home Meds: 1. Macrobid 100 mg Oral cap 1 cap every 12 hours - PMHx: back pain; - PSHx: Appendectomy; - Social history: Smoking status: Patient uses tobacco products, current some day smoker. No barriers to communication noted, The patient speaks fluent Malay, Speaks appropriately for age. - Family history: Not pertinent. - : The pt / caregiver states he / she is not on anticoagulants. Home medication list is obtained from the patient. - Exposure Risk Screening:: None identified. 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 3 in. (160.02 cm); Pain 5/10; 17:26 BP 131 / 88; Pulse 87; Resp 16; Temp 98.2; Pulse Ox 99% ; Pain 0/10; cjh 13:20 Body Mass Index 37.73 (96.62 kg, 160.02 cm) cmb MDM: 14:33 Undress patient appropriately for examination ordered. le 14:33 Set up pelvic ordered. le 14:34 Complete Blood Count Ordered. EDMS 14:34 Hcg, Serum Quantitative Ordered. EDMS 14:34 GC & Chlamydia Amplification Ordered. EDMS 14:34 Wet Prep Ordered. EDMS 14:34 US 1st trimester Ordered. EDMS 14:34 Type & Screen Ordered. EDMS 15:05 TRANSVAGINAL US Ordered. EDMS 15:05 DUPLEX SCAN LIMITED (DOPPLER) Ordered. EDMS 15:38 Financial registration complete. gjb 16:44 Complete Blood Count Reviewed. le 16:44 Hcg, Serum Quantitative Reviewed. le 16:44 Type & Screen Reviewed. le 16:44 Wet Prep Reviewed. le 16:44 US 1st trimester Reviewed. le 16:44 TRANSVAGINAL US Reviewed. le 16:44 DUPLEX SCAN LIMITED (DOPPLER) Reviewed. le 05/20 09:16 T-Sheet-- Draft Copy was scanned into [email or web address] and attached to record. gb Signatures: Dispatcher [employer] Winnie Vallejo, RN DODIE [facility] Renetta Morrow, Reg Reg [place] Leong, PATIENT CASE COORDINATOR PATIENT CASE COORDINATOR Liz Clifford RN RN cj Rocío Chen The chart was reviewed and I authenticate all verbal orders and agree with the evaluation and treatment provided.Attachments: 09:16 T-Sheet-- Draft Copy gb Chart Complete MTDD
--- NOTE | 2016-05-21 18:30 | EDDOCDS ---
Nurse's Notes [facility] Name: Marleny Bazan Age: 35 yrs Sex: Female : 1980 Arrival Date: 05/19/2016 Time: 13:18 Bed 21 Private MD: NO PRIMARY PHYSICIAN, . Diagnosis: Threatened Presentation: 05/19 13:27 Presenting complaint: Patient states: seen here sat and dx with UTI and found out was srm . has been having spotting now turning darker in color. cramping also since sat. Risk factors: The patient reports no loss of conciousness prior to arrival. This patient has not had a hysterectomy. This patient has not begun menopause. Adult Sepsis Screening: The patient does not have new or worsening altered mentation. Patient's respiratory rate is less than 22. Systolic blood pressure is greater than 100. Patient has a qSOFA score of 0- Negative Sepsis Screen. Suicide/Homicide risk assessment- the patient denies having any suicidal and/or homicidal ideations and does not present with any other emotional, behavioral or mental health complaints. Status: Patient is not a social services designee or dependent. Transition of care: patient was not received from another setting of care. 13:27 Acuity: YANCY Level 3 srm 13:27 Method Of Arrival: Walkin/Carried/Asstd srm Triage Assessment: 13:28 General: Appears in no apparent distress, Behavior is appropriate for age, cooperative. srm Pain: Pain currently is 5 out of 10 on a pain scale. HIV screening NA for this visit Offered previously. : Reports vaginal bleeding that is spotty. 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 Macrobid 100 mg Oral cap 1 cap every 12 hours - PMHx: back pain; - PSHx: Appendectomy; - Social history: Smoking status: Patient uses tobacco products, current some day smoker. No barriers to communication noted, The patient speaks fluent Thai, Speaks appropriately for age. - Family history: Not pertinent. - : The pt / caregiver states he / she is not on anticoagulants. Home medication list is obtained from the patient. - Exposure Risk Screening:: None identified. Screenin:30 Screening information is obtained from the patient. Fall risk: No risks identified. [facility] Assistance ADL's: requires no assistance with activities of daily living. Abuse/DV Screen: The patient / caregiver reports he/she is: not in a situation that causes fear, pain or injury. Nutritional screening: No deficits noted. Advance Directives: There is no active DNR order. home support is adequate. Assessment: 13:45 General: Appears in no apparent distress, comfortable, Behavior is appropriate for age, [facility] cooperative. Pain: Location: back Pain currently is 5 out of 10 on a pain scale. Respiratory: Airway is patent Respiratory effort is even, unlabored, Respiratory pattern is regular, symmetrical. : Urine is clear. : Reports vaginal bleeding that is spotty. Derm: Skin is pink, warm & dry. Musculoskeletal: Range of motion intact in all extremities. 14:30 General: pelvic exam by ASSOCIATE PROFESSOR OF COUNSELING, tolerated without complaint or difficulty. [facility] 15:11 General: Appears in no apparent distress, comfortable, Behavior is appropriate for age, [facility] cooperative, returned from ultrasound, tolerated well, no new problems or complaints. 16:00 General: resting queitly awaiting results, denies needs at present. [facility] 17:26 General: Appears in no apparent distress, comfortable, Behavior is appropriate for age, [facility] cooperative. General: reviewed discharge instructions with patient, encouraged and answered questions, denies further needs, declines offer of additional assistance. Pain: Denies pain. Neurological: Level of Consciousness is awake, alert, Oriented to person, place, time. Respiratory: Airway is patent Respiratory effort is even, unlabored, Respiratory pattern is regular, symmetrical. Derm: Skin is pink, warm & dry. Vital Signs: 13:20 BP 142 / 72; Pulse 91; Resp 16; Temp 98.4(O); Pulse Ox 100% ; Weight 96.62 kg; Height 5 cmb ft. 3 in. (160.02 cm); Pain 5/10; 17:26 BP 131 / 88; Pulse 87; Resp 16; Temp 98.2; Pulse Ox 99% ; Pain 0/10; [facility] 13:20 Body Mass Index 37.73 (96.62 kg, 160.02 cm) cmb Vitals: 13:20 Log In Time: May 19, 2016 at 13:18. cmb ED Course: 13:19 Patient visited by Maria Guadalupe Da Silva. cmb 13:19 Patient moved to Waiting cmb 13:20 NO PRIMARY PHYSICIAN, . is Private Physician. cmb 13:24 Patient moved to Pre RCE cmb 13:28 Triage Initiated srm 13:29 [place] Pappas FNP [facility] le 13:30 Patient moved to 21 srm 14:20 Patient visited by Zaira Vega PCA. ct3 14:25 Patient visited by [place] Pappas FNP. le 14:30 Assist provider with pelvic exam: Set up pelvic tray. Specimens sent to lab. Performed cjh by [place] HERNANDEZ Patient tolerated well. 14:33 Patient visited by [place] Pappas FNP. le 14:42 GC & Chlamydia Amplification Sent. ct3 14:42 Wet Prep Sent. ct3 15:11 Complete Blood Count Sent. cjh 15:11 Hcg, Serum Quantitative Sent. cjh 15:11 Type & Screen Sent. cjh 15:20 Patient visited by Liz Nicole RN. cjh 16:28 Patient visited by Zaira Vega PCA. ct3 16:33 US 1st trimester Returned. EDMS 16:33 TRANSVAGINAL US Returned. EDMS 16:33 DUPLEX SCAN LIMITED (DOPPLER) Returned. EDMS 16:50 Fabio Sanders MD is Referral Physician. le 17:26 The patient / caregiver is instructed regarding the plan of care and ED course. cjh 17:26 No IV's were initiated during this patient's visit. cjh 17:27 US 1st trimester Returned. EDMS 17:27 TRANSVAGINAL US Returned. EDMS 17:27 DUPLEX SCAN LIMITED (DOPPLER) Returned. EDMS 05/20 09:15 T-Sheet-- Draft Copy was scanned into [employer] and attached to record. gb Order Results: Lab Order: Complete Blood Count; SPEC'M 05/19/16 14:48 Test: WHITE BLOOD COUNT; Value: 4.8; Range: 4.0-10.0; Units: K/mm3; Status: F Test: RED BLOOD COUNT; Value: 4.02; Range: 4.00-5.40; Units: M/mm3; Status: F Test: HEMOGLOBIN; Value: 13.0; Range: 12.0-16.0; Units: g/dl; Status: F Test: HEMATOCRIT; Value: 36.9; Range: 36.0-47.0; Units: %; Status: F Test: MEAN CORPUSCULAR VOLUME; Value: 91.8; Range: 80.0-96.0; Units: fl; Status: F Test: MEAN CORPUSCULAR HEMOGLOBIN; Value: 32.4; Range: 27.0-33.0; Units: pg; Status: F Test: MEAN CORPUSCULAR HGB CONC; Value: 35.2; Range: 32.0-36.5; Units: g/dl; Status: F Test: RED CELL DISTRIBUTION WIDTH; Value: 12.3; Range: 11.5-14.5; Units: %; Status: F Test: PLATELET COUNT, AUTOMATED; Value: 291; Range: 150-450; Units: k/mm3; Status: F Lab Order: Hcg, Serum Quantitative; SPEC'M 05/19/16 14:48 Test: HCG, SERUM QUANTITATIVE; Value: 4451; Units: MIU/ML; Status: F Test Note: ; GESTATIONAL AGE APPROXIMATE HCG RANGE (MIU/ML) 0.2-1 WEEK 5-50 1-2 WEEKS 50-500 2-3 WEEKS 100-5,000 3-4 WEEKS 500-10,000 4-5 WEEKS 1,000-50,000 5-6 WEEKS 10,000-100,000 6-8 WEEKS 15,000-200,000 2-3 MONTHS 10,000-100,000 NON FEMALES LESS THAN 3.0 Patient samples may contain human heterophilic antibodies that could react with immunoassays to give falsely elevated or depressed results. This assay has been designed to minimize interference from heterophilic antibodies. Elevated hCG levels have also been associated with trophoblastic disease and nontrophoblastic neoplasms. The possibility of having these diseases should be considered before a diagnosis of is made. This test is not intended for use as a surrogate marker for aiding in the diagnosis or monitoring the treatment of cancer patients. Siemens [employer] methodology. Lab Order: Type & Screen; SPEC'M 05/19/16 14:48 Test: BLOOD TYPE; Value: O POS; Status: F Test: AB SCREEN (INDIRECT AYAN)GEL; Value: NEGATIVE; Status: F Lab Order: Wet Prep; SPEC'M 05/19/16 14:43 Test: WET PREP; Value: WET PREP RESULT; Status: F Test: WET PREP; Value: MODERATE EPITHELIAL CELLS PRESENT; Status: F Test: WET PREP; Value: MANY WBC; Status: F Test: WET PREP; Value: MANY SHORT RODS PRESENT; Status: F Test: WET PREP; Value: MODERATE YEAST LIKE ORGANISM PRESENT; Status: F Test: WET PREP; Value: MODERATE CLUE CELLS PRESENT; Status: F Lab Order: GC & Chlamydia Amplification; SPEC'M 05/19/16 14:43 Test: CHLAMYDIA DNA AMPLIFICATION; Value: NEGATIVE; Range: NEGATIVE; Status: F Test: GC DNA AMPLIFICATION; Value: NEGATIVE; Range: NEGATIVE; Status: F Radiology Order: US 1st trimester Test: US 1st trimester REASON FOR EXAMINATION: Bleeding; First trimester obstetric sonography:; ; History: Vaginal bleeding.; ; Findings: Transabdominal and transvaginal scanning are performed. There is an; intrauterine gestational sac seen. By mean sac size diameter of 9 mm this would; correspond with a 4-week 6-day gestation. There is a yolk sac visible within the; gestational sac, but no embryonic pole is seen. No free fluid is seen in the; cul-de-sac. The right ovary measures 2.8 x 1.6 x 1.8 cm and has normal Doppler; flow. It contains a 1.2 x 1.0 x 0.9 cm hypoechoic cyst consistent with a corpus; luteum. A normal left ovary is seen with dimensions of 2.6 x 1.6 x 1.6 cm and; normal Doppler flow.; ; Impression:; ; Intrauterine gestational sac at 4-week 6-day size. There is a yolk sac seen, but; no embryonic pole seen. viability cannot be confirmed. Clinical and; possibly sonographic followup suggested.; ; ; Signed by; Spenser Levine MD 05/19/2016 04:26 P; Radiology Order: TRANSVAGINAL US Test: TRANSVAGINAL US REASON FOR EXAMINATION: EVAL OVARIES AND UTERUS; First trimester obstetric sonography:; ; History: Vaginal bleeding.; ; Findings: Transabdominal and transvaginal scanning are performed. There is an; intrauterine gestational sac seen. By mean sac size diameter of 9 mm this would; correspond with a 4-week 6-day gestation. There is a yolk sac visible within the; gestational sac, but no embryonic pole is seen. No free fluid is seen in the; cul-de-sac. The right ovary measures 2.8 x 1.6 x 1.8 cm and has normal Doppler; flow. It contains a 1.2 x 1.0 x 0.9 cm hypoechoic cyst consistent with a corpus; luteum. A normal left ovary is seen with dimensions of 2.6 x 1.6 x 1.6 cm and; normal Doppler flow.; ; Impression:; ; Intrauterine gestational sac at 4-week 6-day size. There is a yolk sac seen, but; no embryonic pole seen. viability cannot be confirmed. Clinical and; possibly sonographic followup suggested.; ; ; Signed by; Spenser Levine MD 05/19/2016 04:26 P; Radiology Order: DUPLEX SCAN LIMITED (DOPPLER) Test: DUPLEX SCAN LIMITED (DOPPLER) REASON FOR EXAMINATION: EVAL OVARIES AND UTERUS; First trimester obstetric sonography:; ; History: Vaginal bleeding.; ; Findings: Transabdominal and transvaginal scanning are performed. There is an; intrauterine gestational sac seen. By mean sac size diameter of 9 mm this would; correspond with a 4-week 6-day gestation. There is a yolk sac visible within the; gestational sac, but no embryonic pole is seen. No free fluid is seen in the; cul-de-sac. The right ovary measures 2.8 x 1.6 x 1.8 cm and has normal Doppler; flow. It contains a 1.2 x 1.0 x 0.9 cm hypoechoic cyst consistent with a corpus; luteum. A normal left ovary is seen with dimensions of 2.6 x 1.6 x 1.6 cm and; normal Doppler flow.; ; Impression:; ; Intrauterine gestational sac at 4-week 6-day size. There is a yolk sac seen, but; no embryonic pole seen. viability cannot be confirmed. Clinical and; possibly sonographic followup suggested.; ; ; Signed by; Spenser Levine MD 05/19/2016 04:26 P; Outcome: 05/19 16:50 Discharge ordered by Provider. le 17:26 Discharge Assessment: Patient awake, alert and oriented x 3. No cognitive and/or cjh functional deficits noted. Patient verbalized understanding of disposition instructions. patient administered narcotics - no. The following High Risk Discharge criteria are identified: None. Discharged to home ambulatory. Condition: good Condition: stable Condition: improved. Discharge instructions given to patient, Instructed on discharge instructions, follow up and referral plans. medication usage, Demonstrated understanding of instructions, medications, Pt was receptive of discharge instructions/ teaching. Prescriptions given X 1. Ultrasound Study completed. Property :Personal belongings accompany Pt. 17:29 Patient left the ED. [facility] Signatures: Dispatcher [employer] EDWinnie Cesar, RN RN srm Renetta Morrow, Reg Reg gb [place] Pappas, MD DO RESIDENT URGENT CARE MD DO RESIDENT [facility]ARE Zaira Noguera, PSYCHOLOGY TECH PSYCHOLOGY TECH ct3 Liz Nicole RN RN [facility] Maria Guadalupe Da Silva cmb Corrections: (The following items were deleted from the chart) 13:24 13:20 Pulse 91bpm; Resp 16bpm; Pulse Ox 100%; Temp 98.4F Oral; 96.62 kg; Height 5 ft. 3 cmb in.; BMI: 37.7; Pain 5/10; cmb Chart Complete MTDD
--- NOTE | 2016-05-21 18:30 | EDDOCDS ---
Physician Documentation [facility] Name: Marleny Bazan Age: 35 yrs Sex: Female : 1980 Arrival Date: 05/19/2016 Time: 13:18 Bed 21 Private MD: NO PRIMARY PHYSICIAN, . Disposition: 05/19/16 16:50 Discharged to Home/Self Care. Impression: Threatened . - Condition is Stable. - Discharge Instructions: Threatened Miscarriage, Pelvic Rest. - Prescriptions for Vitamin 27- 0.8 mg Oral Tablet - take 1 tablet by ORAL route once daily; 60 tablet. - Medication Reconciliation, Local Pharmacy Hours form. - Follow up: Fabio Sanders MD; When: Call to arrange an appointment; Reason: Recheck today's complaints, Continuance of care. - Problem is an ongoing problem. - Symptoms are unchanged. - Notes: Have your blood work done on . Results will be sent to Dr Sanders Return to the ED for severe bleeding, pain, fever or any other concerns Historical: - Allergies: no known allergies; - Home Meds: 1. Macrobid 100 mg Oral cap 1 cap every 12 hours - PMHx: back pain; - PSHx: Appendectomy; - Social history: Smoking status: Patient uses tobacco products, current some day smoker. No barriers to communication noted, The patient speaks fluent Korean, Speaks appropriately for age. - Family history: Not pertinent. - : The pt / caregiver states he / she is not on anticoagulants. Home medication list is obtained from the patient. - Exposure Risk Screening:: None identified. 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 3 in. (160.02 cm); Pain 5/10; 17:26 BP 131 / 88; Pulse 87; Resp 16; Temp 98.2; Pulse Ox 99% ; Pain 0/10; cjh 13:20 Body Mass Index 37.73 (96.62 kg, 160.02 cm) cmb MDM: 14:33 Undress patient appropriately for examination ordered. le 14:33 Set up pelvic ordered. le 14:34 Complete Blood Count Ordered. EDMS 14:34 Hcg, Serum Quantitative Ordered. EDMS 14:34 GC & Chlamydia Amplification Ordered. EDMS 14:34 Wet Prep Ordered. EDMS 14:34 US 1st trimester Ordered. EDMS 14:34 Type & Screen Ordered. EDMS 15:05 TRANSVAGINAL US Ordered. EDMS 15:05 DUPLEX SCAN LIMITED (DOPPLER) Ordered. EDMS 15:38 Financial registration complete. gjb 16:44 Complete Blood Count Reviewed. le 16:44 Hcg, Serum Quantitative Reviewed. le 16:44 Type & Screen Reviewed. le 16:44 Wet Prep Reviewed. le 16:44 US 1st trimester Reviewed. le 16:44 TRANSVAGINAL US Reviewed. le 16:44 DUPLEX SCAN LIMITED (DOPPLER) Reviewed. le 05/20 09:16 T-Sheet-- Draft Copy was scanned into User[employer] and attached to record. gb Signatures: Dispatcher [employer] Winnie Vallejo, RN DODIE [facility] Renetta Morrow, Reg Reg [place] Leong, FRYER LINE HELPER FRYER LINE HELPER Liz Clifford RN RN cj Rocío Chen The chart was reviewed and I authenticate all verbal orders and agree with the evaluation and treatment provided.Attachments: 09:16 T-Sheet-- Draft Copy gb Chart Complete MTDD
== END 2016-05-19 17:29 | disposition home or self-care (01) ==
LOC: M ED 13:18
DX: O20.0 Threatened abortion (principal); O26.891 Other specified pregnancy related conditions, first trimester; O99.331 Smoking (tobacco) complicating pregnancy, first trimester; Z3A.00 Weeks of gestation of pregnancy not specified

== ENCOUNTER → 2016-05-21 | Outpatient (REF) | payer OTHER | END | disposition home or self-care (01) | LOC: M LABDRAW1 15:39 | PROVIDERS: ATTEND Nurse Practitioner Family | DX: O20.0 Threatened abortion (principal); Z3A.00 Weeks of gestation of pregnancy not specified ==

== ENCOUNTER 2016-05-25 07:31 | Emergency (ER) | payer OTHER ==
[2016-05-25 08:31] LABS: MEAN CORPUSCULAR HEMOGLOBIN 32.5 pg (27.0-33.0); MEAN CORPUSCULAR HGB CONC 34.8 g/dl (32.0-36.5); MEAN CORPUSCULAR VOLUME 93.3 fl (80.0-96.0); RED CELL DISTRIBUTION WIDTH 12.2 % (11.5-14.5); WHITE BLOOD COUNT 5.4 K/mm3 (4.0-10.0)
--- NOTE | 2016-05-25 10:16 | EDDOCDS ---
Nurse's Notes [facility] Name: Marleny Bazan Age: 35 yrs Sex: Female : 1980 Arrival Date: 05/25/2016 Time: 07:31 Bed I3 / M3 Private MD: Diagnosis: Incomplete spontaneous without complication Presentation: 05/25 07:36 Presenting complaint: Patient states: states that she has been seen by her OB and here ml6 for threatened miscarriage, states HCG dropped and scheduled for US Wednesday, states spotting bleeding yesterday. Risk factors: The patient reports no loss of conciousness prior to arrival. This patient has not had a hysterectomy. This patient has not begun menopause. Adult Sepsis Screening: The patient does not have new or worsening altered mentation. Patient's respiratory rate is less than 22. Systolic blood pressure is greater than 100. Patient has a qSOFA score of 0- Negative Sepsis Screen. Suicide/Homicide risk assessment- the patient denies having any suicidal and/or homicidal ideations and does not present with any other emotional, behavioral or mental health complaints. 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 Transition of care: patient was not received from another setting of care. 07:36 Acuity: YANCY Level 3 ml6 07:36 Method Of Arrival: Walkin/Carried/Asstd ml6 Triage Assessment: 07:38 General: Appears in no apparent distress, Behavior is appropriate for age, cooperative. ml6 Pain: Location: left low back and right low back Pain currently is 5 out of 10 on a pain scale. Pain does not radiate. Quality of pain is described as crampy, Pain began 1 day ago Is continuous. HIV screening NA for this visit Offered previously. Neurological: No deficits noted. Cardiovascular: No deficits noted. : Reports vaginal bleeding that is light flow spotty. 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 none - PMHx: back pain; - PSHx: Appendectomy; - Social history: Smoking status: Patient uses tobacco products, current some day smoker. No barriers to communication noted, Speaks appropriately for age. - Family history: Not pertinent. - : The pt / caregiver states he / she is not on anticoagulants. Home medication list is obtained from the patient. - Exposure Risk Screening:: None identified. Screenin:00 Screening information is obtained from the patient. Fall risk: No risks identified. dls Assistance ADL's: requires no assistance with activities of daily living. Abuse/DV Screen: The patient / caregiver reports he/she is: not in a situation that causes fear, pain or injury. Nutritional screening: No deficits noted. Advance Directives: Currently, there is no health care proxy. There is no active DNR order. There is no living will. There is no Power of Final Inspector Paper. Advance directive information has not previously been placed in an [facility] medical record. home support is adequate. Assessment: 07:57 General: Appears in no apparent distress, well developed, well nourished, well groomed, dls Behavior is cooperative. Pain: Location: back and right low back and left low back. Neurological: No deficits noted. EENT: No deficits noted. Cardiovascular: No deficits noted. Respiratory: No deficits noted. GI: Abdomen is non- distended Bowel sounds present X 4 quads. Abd is soft and non tender X 4 quads. Reports Parent/caregiver reports the patient having. : Genitalia appear normal Reports vaginal bleeding that is spotty. Derm: No deficits noted. Musculoskeletal: No deficits noted. 09:14 General: Appears Skin warm and color satisfactory . Moist pink oral mucosa. quielty jmk resting. casual presentation .Obese abdomen that is non distended with bowel sounds present x 4. states no bleeding presently. without pain. comfort measures offered.. 10:14 General: Appears Teary emotional support provided. without pain or vaginal bleeding. jmk receptive to discharge. Vital Signs: 07:37 BP 141 / 93; Pulse 83; Resp 18; Temp 98(O); Pulse Ox 98% on R/A; Weight 96.62 kg (R); ml6 Height 5 ft. 3 in. (160.02 cm) (R); Pain 5/10; 07:37 Body Mass Index 37.73 (96.62 kg, 160.02 cm) 6 Vitals: 07:37 Log In Time: May 25, 2016 at 07:29. [facility] ED Course: 07:32 Patient visited by Ganter, LoriLee, Reg. lg 07:32 Patient moved to Waiting lg 07:37 Triage Initiated ml6 07:39 Patient moved to I3 / M3 ml6 07:41 [facility] ar2 07:41 Cha Rawls MD is Attending Physician. ar2 07:41 Patient visited by Nick Patrick PA-C. ar2 07:57 [facility] Payment Agreement was scanned into ttwick and attached to record. mm15 08:00 The patient / caregiver is instructed regarding the plan of care and ED course. dls 08:13 Hcg, Serum Quantitative Sent. jml1 08:13 CBC Sent. jml1 08:44 Patient visited by Tucker Huggins. jml1 09:16 Patient visited by Thomas Falcon RN. jmk 10:03 Fabio Sanders MD is Referral Physician. ar2 10:14 No IV's were initiated during this patient's visit. No procedures done that require jmk assistance. Order Results: Lab Order: CBC; SPEC'M 05/25/16 08:10 Test: WHITE BLOOD COUNT; Value: 5.4; Range: 4.0-10.0; Units: K/mm3; Status: F Test: RED BLOOD COUNT; Value: 3.64; Range: 4.00-5.40; Abnormal: Below low normal; Units: M/mm3; Status: F Test: HEMOGLOBIN; Value: 11.8; Range: 12.0-16.0; Abnormal: Below low normal; Units: g/dl; Status: F Test: HEMATOCRIT; Value: 34.0; Range: 36.0-47.0; Abnormal: Below low normal; Units: %; Status: F Test: MEAN CORPUSCULAR VOLUME; Value: 93.3; Range: 80.0-96.0; Units: fl; Status: F Test: MEAN CORPUSCULAR HEMOGLOBIN; Value: 32.5; Range: 27.0-33.0; Units: pg; Status: F Test: MEAN CORPUSCULAR HGB CONC; Value: 34.8; Range: 32.0-36.5; Units: g/dl; Status: F Test: RED CELL DISTRIBUTION WIDTH; Value: 12.2; Range: 11.5-14.5; Units: %; Status: F Test: PLATELET COUNT, AUTOMATED; Value: 239; Range: 150-450; Units: k/mm3; Status: F Lab Order: Hcg, Serum Quantitative; SPEC'M 05/25/16 08:10 Test: HCG, SERUM QUANTITATIVE; Value: 3489; Units: MIU/ML; Status: F Test Note: ; GESTATIONAL AGE APPROXIMATE HCG RANGE (MIU/ML) 0.2-1 WEEK 5-50 1-2 WEEKS 50-500 2-3 WEEKS 100-5,000 3-4 WEEKS 500-10,000 4-5 WEEKS 1,000-50,000 5-6 WEEKS 10,000-100,000 6-8 WEEKS 15,000-200,000 2-3 MONTHS 10,000-100,000 NON FEMALES LESS THAN 3.0 Patient samples may contain human heterophilic antibodies that could react with immunoassays to give falsely elevated or depressed results. This assay has been designed to minimize interference from heterophilic antibodies. Elevated hCG levels have also been associated with trophoblastic disease and nontrophoblastic neoplasms. The possibility of having these diseases should be considered before a diagnosis of is made. This test is not intended for use as a surrogate marker for aiding in the diagnosis or monitoring the treatment of cancer patients. Siemens [employer] methodology. Outcome: 10:04 Discharge ordered by Provider. ar2 10:14 Discharge Assessment: Patient awake, alert and oriented x 3. No cognitive and/or jmk functional deficits noted. Patient verbalized understanding of disposition instructions. patient administered narcotics - no. The following High Risk Discharge criteria are identified: None. Discharged to home ambulatory. Condition: good. Discharge instructions given to patient, Instructed on discharge instructions, follow up and referral plans. medication usage, Demonstrated understanding of instructions, medications, Pt was receptive of discharge instructions/ teaching. No special radiology studies were completed. Property :Personal belongings accompany Pt. 10:15 Patient left the ED. franki Signatures: Thomas Falcon RN RN jmk Scott, Debra, RN RN dls Ganter, LoriLee, Nick Beverly lg, PA-C PA-C ar2 Roderick Burgess RN RN ml6 Tucker Huggins jm Rudy Díaz mm15 MTDD
--- NOTE | 2016-05-25 10:16 | EDDOCDS ---
Physician Documentation [facility] Name: Marleny Bazan Age: 35 yrs Sex: Female : 1980 Arrival Date: 05/25/2016 Time: 07:31 Bed I3 / M3 Private MD: Disposition: 05/25/16 10:04 Discharged to Home/Self Care. Impression: Incomplete spontaneous without complication. - Condition is Stable. - Discharge Instructions: Miscarriage. - Medication Reconciliation, Local Pharmacy Hours, Work Release Form - 4 day form. - Follow up: Fabio Sanders MD; When: As previously arranged; Reason: Recheck today's complaints, Continuance of care. Follow up: Emergency Department; When: As needed; Reason: severe pain, severe bleeding (soaking more than 1 pad/hr). - Problem is new. - Symptoms are unchanged. Historical: - Allergies: no known allergies; - Home Meds: 1. none - PMHx: back pain; - PSHx: Appendectomy; - Social history: Smoking status: Patient uses tobacco products, current some day smoker. No barriers to communication noted, Speaks appropriately for age. - Family history: Not pertinent. - : The pt / caregiver states he / she is not on anticoagulants. Home medication list is obtained from the patient. - Exposure Risk Screening:: None identified. 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 3 in. (160.02 cm) (R); Pain 5/10; 07:37 Body Mass Index 37.73 (96.62 kg, 160.02 cm) ml6 MDM: 07:57 Financial registration complete. mm15 07:57 [facility] Payment Agreement was scanned into [employer] and attached to record. mm15 07:57 CBC Ordered. EDMS 07:57 Hcg, Serum Quantitative Ordered. EDMS 09:22 CBC Reviewed. sd1 09:22 Hcg, Serum Quantitative Reviewed. sd1 Signatures: Dispatcher [employer] EDMS Katty Chaney MD MD sd1 Thomas FalconRN RN Jojo Carter RN RN Nick Guerin PA-C PA-C ar2 Lowe, Matthew RN RN ml6 Rudy Díaz mm15 The chart was reviewed and I authenticate all verbal orders and agree with the evaluation and treatment provided.Attachments: 07:57 [facility] Payment Agreement mm15 MTDD
--- NOTE | 2016-05-27 11:16 | EDDOCDS ---
Nurse's Notes [facility] [place] Name: Marleny Bazan Age: 35 yrs Sex: Female : 1980 Arrival Date: 05/25/2016 Time: 07:31 Bed I3 / M3 Private MD: Diagnosis: Incomplete spontaneous without complication Presentation: 05/25 07:36 Presenting complaint: Patient states: states that she has been seen by her OB and here ml6 for threatened miscarriage, states HCG dropped and scheduled for US Wednesday, states spotting bleeding yesterday. Risk factors: The patient reports no loss of conciousness prior to arrival. This patient has not had a hysterectomy. This patient has not begun menopause. Adult Sepsis Screening: The patient does not have new or worsening altered mentation. Patient's respiratory rate is less than 22. Systolic blood pressure is greater than 100. Patient has a qSOFA score of 0- Negative Sepsis Screen. Suicide/Homicide risk assessment- the patient denies having any suicidal and/or homicidal ideations and does not present with any other emotional, behavioral or mental health complaints. 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 Transition of care: patient was not received from another setting of care. 07:36 Acuity: YANCY Level 3 ml6 07:36 Method Of Arrival: Walkin/Carried/Asstd ml6 Triage Assessment: 07:38 General: Appears in no apparent distress, Behavior is appropriate for age, cooperative. ml6 Pain: Location: left low back and right low back Pain currently is 5 out of 10 on a pain scale. Pain does not radiate. Quality of pain is described as crampy, Pain began 1 day ago Is continuous. HIV screening NA for this visit Offered previously. Neurological: No deficits noted. Cardiovascular: No deficits noted. : Reports vaginal bleeding that is light flow spotty. 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 none - PMHx: back pain; - PSHx: Appendectomy; - Social history: Smoking status: Patient uses tobacco products, current some day smoker. No barriers to communication noted, Speaks appropriately for age. - Family history: Not pertinent. - : The pt / caregiver states he / she is not on anticoagulants. Home medication list is obtained from the patient. - Exposure Risk Screening:: None identified. Screenin:00 Screening information is obtained from the patient. Fall risk: No risks identified. dls Assistance ADL's: requires no assistance with activities of daily living. Abuse/DV Screen: The patient / caregiver reports he/she is: not in a situation that causes fear, pain or injury. Nutritional screening: No deficits noted. Advance Directives: Currently, there is no health care proxy. There is no active DNR order. There is no living will. There is no Power of Incoming Inspector. Advance directive information has not previously been placed in an [facility] medical record. home support is adequate. Assessment: 07:57 General: Appears in no apparent distress, well developed, well nourished, well groomed, dls Behavior is cooperative. Pain: Location: back and right low back and left low back. Neurological: No deficits noted. EENT: No deficits noted. Cardiovascular: No deficits noted. Respiratory: No deficits noted. GI: Abdomen is non- distended Bowel sounds present X 4 quads. Abd is soft and non tender X 4 quads. Reports Parent/caregiver reports the patient having. : Genitalia appear normal Reports vaginal bleeding that is spotty. Derm: No deficits noted. Musculoskeletal: No deficits noted. 09:14 General: Appears Skin warm and color satisfactory . Moist pink oral mucosa. quielty jmk resting. casual presentation .Obese abdomen that is non distended with bowel sounds present x 4. states no bleeding presently. without pain. comfort measures offered.. 10:14 General: Appears Teary emotional support provided. without pain or vaginal bleeding. jmk receptive to discharge. Vital Signs: 07:37 BP 141 / 93; Pulse 83; Resp 18; Temp 98(O); Pulse Ox 98% on R/A; Weight 96.62 kg (R); ml6 Height 5 ft. 3 in. (160.02 cm) (R); Pain 5/10; 07:37 Body Mass Index 37.73 (96.62 kg, 160.02 cm) 6 Vitals: 07:37 Log In Time: May 25, 2016 at 07:29. [email or web address] ED Course: 07:32 Patient visited by Ganter, LoriLee, Reg. lg 07:32 Patient moved to Waiting lg 07:37 Triage Initiated ml6 07:39 Patient moved to I3 / M3 ml6 07:41 Nick Patrick [facility] ar2 07:41 Cha Rawls MD is Attending Physician. ar2 07:41 Patient visited by Nick Patrick PA-C. ar2 07:57 [facility] [place] Agreement was scanned into [employer] and attached to record. mm15 08:00 The patient / caregiver is instructed regarding the plan of care and ED course. dls 08:13 Hcg, Serum Quantitative Sent. jml1 08:13 CBC Sent. jml1 08:44 Patient visited by Tucker Huggins. jml1 09:16 Patient visited by Thomas Falcon RN. jmk 10:03 Fabio Sanders MD is Referral Physician. ar2 10:14 No IV's were initiated during this patient's visit. No procedures done that require jmk assistance. 14:11 T-Sheet-- Draft Copy was scanned into REPP and attached to record. gb Order Results: Lab Order: CBC; SPEC'M 05/25/16 08:10 Test: WHITE BLOOD COUNT; Value: 5.4; Range: 4.0-10.0; Units: K/mm3; Status: F Test: RED BLOOD COUNT; Value: 3.64; Range: 4.00-5.40; Abnormal: Below low normal; Units: M/mm3; Status: F Test: HEMOGLOBIN; Value: 11.8; Range: 12.0-16.0; Abnormal: Below low normal; Units: g/dl; Status: F Test: HEMATOCRIT; Value: 34.0; Range: 36.0-47.0; Abnormal: Below low normal; Units: %; Status: F Test: MEAN CORPUSCULAR VOLUME; Value: 93.3; Range: 80.0-96.0; Units: fl; Status: F Test: MEAN CORPUSCULAR HEMOGLOBIN; Value: 32.5; Range: 27.0-33.0; Units: pg; Status: F Test: MEAN CORPUSCULAR HGB CONC; Value: 34.8; Range: 32.0-36.5; Units: g/dl; Status: F Test: RED CELL DISTRIBUTION WIDTH; Value: 12.2; Range: 11.5-14.5; Units: %; Status: F Test: PLATELET COUNT, AUTOMATED; Value: 239; Range: 150-450; Units: k/mm3; Status: F Lab Order: Hcg, Serum Quantitative; SPEC'M 05/25/16 08:10 Test: HCG, SERUM QUANTITATIVE; Value: 3489; Units: MIU/ML; Status: F Test Note: ; GESTATIONAL AGE APPROXIMATE HCG RANGE (MIU/ML) 0.2-1 WEEK 5-50 1-2 WEEKS 50-500 2-3 WEEKS 100-5,000 3-4 WEEKS 500-10,000 4-5 WEEKS 1,000-50,000 5-6 WEEKS 10,000-100,000 6-8 WEEKS 15,000-200,000 2-3 MONTHS 10,000-100,000 NON FEMALES LESS THAN 3.0 Patient samples may contain human heterophilic antibodies that could react with immunoassays to give falsely elevated or depressed results. This assay has been designed to minimize interference from heterophilic antibodies. Elevated hCG levels have also been associated with trophoblastic disease and nontrophoblastic neoplasms. The possibility of having these diseases should be considered before a diagnosis of is made. This test is not intended for use as a surrogate marker for aiding in the diagnosis or monitoring the treatment of cancer patients. Siemens GeoVS methodology. Outcome: 10:04 Discharge ordered by Provider. ar2 10:14 Discharge Assessment: Patient awake, alert and oriented x 3. No cognitive and/or jmk functional deficits noted. Patient verbalized understanding of disposition instructions. patient administered narcotics - no. The following High Risk Discharge criteria are identified: None. Discharged to home ambulatory. Condition: good. Discharge instructions given to patient, Instructed on discharge instructions, follow up and referral plans. medication usage, Demonstrated understanding of instructions, medications, Pt was receptive of discharge instructions/ teaching. No special radiology studies were completed. Property :Personal belongings accompany Pt. 10:15 Patient left the ED. heshamk Signatures: Thomas Falcon RN RN jmk Scott, Debra, RN RN dls Barnhardt, Gloria, Reg Reg gb Ayad Langston, Reg Reg lg Nick Patrick PA-C PA-C ar2 Roderick Burgess, RN RN ml6 Tucker Huggins jml1 Rudy Díaz mm15 Chart Complete MTDD
--- NOTE | 2016-05-27 11:16 | EDDOCDS ---
Physician Documentation [facility] Name: Marleny Bazan Age: 35 yrs Sex: Female : 1980 Arrival Date: 05/25/2016 Time: 07:31 Bed I3 / M3 Private MD: Disposition: 05/25/16 10:04 Discharged to Home/Self Care. Impression: Incomplete spontaneous without complication. - Condition is Stable. - Discharge Instructions: Miscarriage. - Medication Reconciliation, Local Pharmacy Hours, Work Release Form - 4 day form. - Follow up: Fabio Sanders MD; When: As previously arranged; Reason: Recheck today's complaints, Continuance of care. Follow up: Emergency Department; When: As needed; Reason: severe pain, severe bleeding (soaking more than 1 pad/hr). - Problem is new. - Symptoms are unchanged. Historical: - Allergies: no known allergies; - Home Meds: 1. none - PMHx: back pain; - PSHx: Appendectomy; - Social history: Smoking status: Patient uses tobacco products, current some day smoker. No barriers to communication noted, Speaks appropriately for age. - Family history: Not pertinent. - : The pt / caregiver states he / she is not on anticoagulants. Home medication list is obtained from the patient. - Exposure Risk Screening:: None identified. 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 3 in. (160.02 cm) (R); Pain 5/10; 07:37 Body Mass Index 37.73 (96.62 kg, 160.02 cm) ml6 MDM: 07:57 Financial registration complete. mm15 07:57 [facility] Payment Agreement was scanned into [employer] and attached to record. mm15 07:57 CBC Ordered. EDMS 07:57 Hcg, Serum Quantitative Ordered. EDMS 09:22 CBC Reviewed. sd1 09:22 Hcg, Serum Quantitative Reviewed. sd1 14:11 T-Sheet-- Draft Copy was scanned into [employer] and attached to record. gb Signatures: Dispatcher [employer] EDKatty Romero MD MD sd1 Thomas FalconRN RN Jojo Carter RN RN dls Renetta Morrow, Reg Reg gb Nick Patrick, PAGilson PAGilson milian2 Roderick Burgess RN RN ml6 Rudy Díaz mm15 The chart was reviewed and I authenticate all verbal orders and agree with the evaluation and treatment provided.Attachments: 07:57 [facility] Payment Agreement mm15 14:11 T-Sheet-- Draft Copy gb Chart Complete MTDD
--- NOTE | 2016-05-27 11:16 | EDDOCDS ---
Physician Documentation [facility] Name: Marleny Bazan Age: 35 yrs Sex: Female : 1980 Arrival Date: 05/25/2016 Time: 07:31 Bed I3 / M3 Private MD: Disposition: 05/25/16 10:04 Discharged to Home/Self Care. Impression: Incomplete spontaneous without complication. - Condition is Stable. - Discharge Instructions: Miscarriage. - Medication Reconciliation, Local Pharmacy Hours, Work Release Form - 4 day form. - Follow up: Fabio Sanders MD; When: As previously arranged; Reason: Recheck today's complaints, Continuance of care. Follow up: Emergency Department; When: As needed; Reason: severe pain, severe bleeding (soaking more than 1 pad/hr). - Problem is new. - Symptoms are unchanged. Historical: - Allergies: no known allergies; - Home Meds: 1. none - PMHx: back pain; - PSHx: Appendectomy; - Social history: Smoking status: Patient uses tobacco products, current some day smoker. No barriers to communication noted, Speaks appropriately for age. - Family history: Not pertinent. - : The pt / caregiver states he / she is not on anticoagulants. Home medication list is obtained from the patient. - Exposure Risk Screening:: None identified. 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 3 in. (160.02 cm) (R); Pain 5/10; 07:37 Body Mass Index 37.73 (96.62 kg, 160.02 cm) ml6 MDM: 07:57 Financial registration complete. mm15 07:57 [facility] Payment Agreement was scanned into [employer] and attached to record. mm15 07:57 CBC Ordered. EDMS 07:57 Hcg, Serum Quantitative Ordered. EDMS 09:22 CBC Reviewed. sd1 09:22 Hcg, Serum Quantitative Reviewed. sd1 14:11 T-Sheet-- Draft Copy was scanned into [employer] and attached to record. gb Signatures: Dispatcher [employer] EDKatty Romero MD MD sd1 Thomas FalconRN RN Jojo Carter RN RN dls Renetta Morrow, Reg Reg gb Nick Patrick, PAGilson PAGilson milian2 Roderick Burgess RN RN ml6 Rudy Díaz mm15 The chart was reviewed and I authenticate all verbal orders and agree with the evaluation and treatment provided.Attachments: 07:57 [facility] Payment Agreement mm15 14:11 T-Sheet-- Draft Copy gb Chart Complete MTDD
== END 2016-05-25 10:15 | disposition home or self-care (01) ==
LOC: M ED 07:31
DX: O03.4 Incomplete spontaneous abortion without complication (principal); M54.9 Dorsalgia, unspecified; F17.200 Nicotine dependence, unspecified, uncomplicated

== ENCOUNTER → 2016-06-25 | Outpatient (REF) | payer OTHER | LOC: M LAB REF 10:30 | PROVIDERS: ATTEND Specialist | DX: O03.4 Incomplete spontaneous abortion without complication (principal); Z36 Encounter for antenatal screening of mother; Z3A.00 Weeks of gestation of pregnancy not specified ==

== ENCOUNTER 2016-08-10 13:48 | Emergency (ER) | payer OTHER ==
[~2016-08-10] VITALS: Ht 160 cm; Wt 93.9 kg
[2016-08-10] MEDS ORDERED: GI COCKTAIL 50ML BTL(HYOSCYAMINE/MAALOX/LIDOCAINE VISCOUS)(1:3:1) PO ONE (14:30)
--- NOTE | 2016-08-10 16:16 | REP ---
ABDOMINAL SERIES: Supine and erect views of the abdomen demonstrate no free air or obstruction. No dilated small bowel loops are seen. No definite abnormal calcifications are seen. Visualized osseous structures appear unremarkable. An accompanying view of the chest demonstrates no acute infiltrate. Cardiomediastinal silhouette is unremarkable. IMPRESSION: Essentially unremarkable abdominal series. Signed by Juan Pablo Le MD 08/10/2016 04:47 P
[2016-08-10] MEDS ORDERED: SIME1CAP PO (16:28)
[2016-08-10 16:43] VITALS: BP 126/75
== END 2016-08-10 16:36 | disposition home or self-care (01) ==
LOC: M ED 14:55
DX: R10.84 Generalized abdominal pain (principal); R19.7 Diarrhea, unspecified; F17.210 Nicotine dependence, cigarettes, uncomplicated

== ENCOUNTER 2017-02-09 12:17 | Emergency (ER) | payer OTHER, SELFPAY ==
[~2017-02-09] VITALS: Ht 160 cm; Wt 96.8 kg
[2017-02-09 12:17] VITALS: BP 133/91
[~2017-02-09 12:17] MED LIST: SIME1CAP PO
[2017-02-09] MEDS ORDERED: AUGM875T28 PO (13:43)
[2017-02-09] MEDS ORDERED: IBUP-1022 PO (13:43)
== END 2017-02-09 13:52 | disposition home or self-care (01) ==
LOC: M ED 12:17
DX: L73.9 Follicular disorder, unspecified (principal); F17.210 Nicotine dependence, cigarettes, uncomplicated; Z98.890 Other specified postprocedural states

== ENCOUNTER 2017-06-30 17:53 | Emergency (ER) | payer BC, SELFPAY ==
[2017-06-30] MEDS: DERMABOND TOPICAL SKIN ADHESIVE TOP (19:43)
== END 2017-06-30 21:50 | disposition home or self-care (01) ==
LOC: M ED 17:53
DX: S61.306A Unspecified open wound of right little finger with damage to nail, initial encounter (principal); W23.0XXA Caught, crushed, jammed, or pinched between moving objects, initial encounter; Y92.9 Unspecified place or not applicable; Y93.9 Activity, unspecified; Y99.0 Civilian activity done for income or pay; F17.200 Nicotine dependence, unspecified, uncomplicated
CPT/HCPCS: 11760

== ENCOUNTER 2017-08-08 12:12 | Emergency (ER) | payer BC ==
[2017-08-08] MEDS ORDERED: BACITRACIN OINT 30GM TOP (13:30)
[2017-08-08] MEDS: CEPHALEXIN 500 MG CAP PO (13:32)
== END 2017-08-08 13:38 | disposition home or self-care (01) ==
LOC: M ED 12:12
DX: N61.0 Mastitis without abscess (principal); T21.21XA Burn of second degree of chest wall, initial encounter; X58.XXXA Exposure to other specified factors, initial encounter; Y92.89 Other specified places as the place of occurrence of the external cause
CPT/HCPCS: 99282

== ENCOUNTER 2018-03-07 21:35 | Emergency (ER) | payer SELFPAY, BC ==
[2018-03-07] MEDS: NS 1,000 ML IV (22:19)
[2018-03-07 22:26] LABS: BASO % 0.5 % (0.0-1.0); EOS # 0.2 10^3/uL (0.0-0.50); EOS % 2.9 % (0.0-3.0); HEMATOCRIT 38.7 % (36.0-47.0); HEMOGLOBIN 12.9 g/dl (12.0-15.5); IMMATURE GRANULOCYTE % 0.3 % (0-3.0); LYMPH # 2.4 10^3/uL (1.5-4.5); LYMPH % 40.1 % (24.0-44.0); MEAN CORPUSCULAR HEMOGLOBIN 31.2 pg (27.0-33.0); MEAN CORPUSCULAR HGB CONC 33.3 g/dl (32.0-36.5); MEAN CORPUSCULAR VOLUME 93.7 fl (80.0-96.0); MONO # 0.5 10^3/uL (0.0-0.8); NEUTROPHILS # 2.8 10^3/uL (1.8-7.7); NEUTROPHILS % 48.2 % (36.0-66.0); PLATELET COUNT, AUTOMATED 315 10^3/uL (150-450); RED BLOOD COUNT 4.13 10^6/uL (4.00-5.40); WHITE BLOOD COUNT 5.9 10^3/uL (4.0-10.0)
[2018-03-07 22:55] LABS: ALBUMIN 3.7 GM/DL (3.2-5.2); ALBUMIN/GLOBULIN RATIO 1.32 (1.00-1.93); ALKALINE PHOSPHATASE 65 U/L (45-117); ALT/SGPT 31 U/L (12-78); ANION GAP 6 MEQ/L (8-16); AST/SGOT 14 U/L (7-37); BILIRUBIN,DIRECT < 0.1 MG/DL (0.0-0.2); BILIRUBIN,TOTAL 0.3 MG/DL (0.2-1.0); BLOOD UREA NITROGEN 14 MG/DL (7-18); CALCIUM LEVEL 8.4 MG/DL (8.5-10.1); CARBON DIOXIDE LEVEL 28 MEQ/L (21-32); CHLORIDE LEVEL 106 MEQ/L (98-107); CREATININE FOR GFR 0.79 MG/DL (0.55-1.30); GLOMERULAR FILTRATION RATE > 60.0 (>60); GLUCOSE, FASTING 86 MG/DL (70-100); POTASSIUM SERUM 3.9 MEQ/L (3.5-5.1); SODIUM LEVEL 140 MEQ/L (136-145); TOTAL PROTEIN 6.5 GM/DL (6.4-8.2)
== END 2018-03-07 23:45 | disposition home or self-care (01) ==
LOC: M ED 21:35
DX: K52.9 Noninfective gastroenteritis and colitis, unspecified (principal); F17.210 Nicotine dependence, cigarettes, uncomplicated
CPT/HCPCS: 80076

== ENCOUNTER 2018-04-12 11:06 | Emergency (ER) | payer SELFPAY ==
[2018-04-12 12:16] LABS: BASO % 0.5 % (0.0-1.0); EOS # 0.2 10^3/uL (0.0-0.50); EOS % 2.7 % (0.0-3.0); HEMATOCRIT 39.7 % (36.0-47.0); HEMOGLOBIN 13.1 g/dl (12.0-15.5); IMMATURE GRANULOCYTE % 0.9 % (0-3.0); LYMPH # 1.8 10^3/uL (1.5-4.5); LYMPH % 30.1 % (24.0-44.0); MEAN CORPUSCULAR HEMOGLOBIN 31.1 pg (27.0-33.0); MEAN CORPUSCULAR VOLUME 94.3 fl (80.0-96.0); MONO # 0.3 10^3/uL (0.0-0.8); MONO % 5.5 % (0.0-5.0); NEUTROPHILS # 3.5 10^3/uL (1.8-7.7); NEUTROPHILS % 60.3 % (36.0-66.0); PLATELET COUNT, AUTOMATED 257 10^3/uL (150-450); RED BLOOD COUNT 4.21 10^6/uL (4.00-5.40); RED CELL DISTRIBUTION WIDTH 12.2 % (11.5-14.5); WHITE BLOOD COUNT 5.8 10^3/uL (4.0-10.0)
[2018-04-12 12:29] LABS: INR 0.89; PARTIAL THROMBOPLASTIN TIME 25.1 SECONDS (25.4-37.6); PROTHROMBIN TIME 12.2 SECONDS (12.1-14.4)
[2018-04-12 12:39] LABS: LACTIC ACID SEPSIS PROTOCOL 1.1 MMOL/L (0.4-2.0)
[2018-04-12 12:42] LABS: ALBUMIN 3.8 GM/DL (3.2-5.2); ALBUMIN/GLOBULIN RATIO 1.15 (1.00-1.93); ALKALINE PHOSPHATASE 62 U/L (45-117); ALT/SGPT 25 U/L (12-78); AMYLASE 34 U/L (25-115); ANION GAP 6 MEQ/L (8-16); AST/SGOT 10 U/L (7-37); BILIRUBIN,DIRECT < 0.1 MG/DL (0.0-0.2); BILIRUBIN,TOTAL 0.3 MG/DL (0.2-1.0); BLOOD UREA NITROGEN 10 MG/DL (7-18); CALCIUM LEVEL 8.5 MG/DL (8.5-10.1); CARBON DIOXIDE LEVEL 28 MEQ/L (21-32); CHLORIDE LEVEL 105 MEQ/L (98-107); CREATININE FOR GFR 0.76 MG/DL (0.55-1.30); GLOMERULAR FILTRATION RATE > 60.0 (>60); GLUCOSE, FASTING 88 MG/DL (70-100); LIPASE 63 U/L (73-393); POTASSIUM SERUM 4.3 MEQ/L (3.5-5.1); SODIUM LEVEL 139 MEQ/L (136-145); TOTAL PROTEIN 7.1 GM/DL (6.4-8.2)
[2018-04-12 12:56] LABS: CONTROL LINE HCG INT CTR LINE PRESENT; HCG, SERUM QUALITATIVE NEGATIVE (NEGATIVE)
[2018-04-12] MEDS: GI COCKTAIL 50ML BTL(HYOSCYAMINE/MAALOX/LIDOCAINE VISCOUS)(1:3:1) PO (14:21)
== END 2018-04-12 15:14 | disposition home or self-care (01) ==
LOC: M ED 11:06
DX: K80.50 Calculus of bile duct without cholangitis or cholecystitis without obstruction (principal); K27.9 Peptic ulcer, site unspecified, unspecified as acute or chronic, without hemorrhage or perforation; F17.210 Nicotine dependence, cigarettes, uncomplicated
CPT/HCPCS: 76705

== ENCOUNTER 2019-01-06 09:30 | Emergency (ER) | payer SELFPAY ==
[~2019-01-06] VITALS: Ht 160 cm; Wt 98.2 kg
[2019-01-06 09:30] VITALS: BP 161/97
[~2019-01-06 09:30] MED LIST changes: +AUGM875T28 PO; +CARA1TAB6 PO; +IBUP-1022 PO; +KEFL500C17 PO; +PROT1TAB2 PO
[2019-01-06] MEDS ORDERED: LIDOCAINE 2% W/ EPINEPHRINE 1.7 ML DENTAL INJ SM ONE (10:00)
[2019-01-06] MEDS ORDERED: BENZOCAINE 20% GEL 9GM TUBE (ANBESOL MAX STRENGTH) TOP ONE (10:00)
[2019-01-06] MEDS ORDERED: AUGM875T28 PO (10:22)
== END 2019-01-06 10:26 | disposition home or self-care (01) ==
LOC: M ED 09:30
DX: K04.7 Periapical abscess without sinus (principal); R68.84 Jaw pain

== ENCOUNTER → 2019-05-22 | Outpatient (CLI) | payer BC ==
[2019-05-22 20:28] LABS: BASO % 0.3 % (0.0-1.0); EOS # 0.1 10^3/uL (0.0-0.5); EOS % 2.1 % (0.0-3.0); HEMATOCRIT 36.4 % (36.0-47.0); HEMOGLOBIN 11.9 g/dl (12.0-15.5); LYMPH # 2.4 10^3/uL (1.5-5.0); LYMPH % 35.4 % (24.0-44.0); MEAN CORPUSCULAR HEMOGLOBIN 31.2 pg (27.0-33.0); MEAN CORPUSCULAR HGB CONC 32.7 g/dl (32.0-36.5); MEAN CORPUSCULAR VOLUME 95.3 fl (80.0-96.0); MONO # 0.5 10^3/uL (0.0-0.8); MONO % 6.9 % (0.0-5.0); NEUTROPHILS # 3.7 10^3/uL (1.5-8.5); NEUTROPHILS % 54.8 % (36.0-66.0); PLATELET COUNT, AUTOMATED 341 10^3/uL (150-450); RED BLOOD COUNT 3.82 10^6/uL (4.00-5.40); WHITE BLOOD COUNT 6.7 10^3/uL (4.0-10.0)
[2019-05-22 20:54] LABS: ALBUMIN 4.1 GM/DL (3.2-5.2); ALT/SGPT 32 U/L (12-78); AMYLASE 23 U/L (25-115); BILIRUBIN,DIRECT 0.1 MG/DL (0.0-0.2); BILIRUBIN,TOTAL 0.3 MG/DL (0.2-1.0); BLOOD UREA NITROGEN 10 MG/DL (7-18); CALCIUM LEVEL 9.1 MG/DL (8.5-10.1); CARBON DIOXIDE LEVEL 32 MEQ/L (21-32); CHLORIDE LEVEL 104 MEQ/L (98-107); GLOMERULAR FILTRATION RATE > 60.0 (>60); GLUCOSE, FASTING 94 MG/DL (70-100); LIPASE 54 U/L (73-393); POTASSIUM SERUM 4.5 MEQ/L (3.5-5.1); SODIUM LEVEL 139 MEQ/L (136-145); TOTAL PROTEIN 6.9 GM/DL (6.4-8.2)
== END ==
LOC: M WUC 18:57
PROVIDERS: ATTEND Physician Assistant
DX: R10.11 Right upper quadrant pain (principal)

== ENCOUNTER → 2019-05-23 | Outpatient (CLI) | payer BC ==
--- NOTE | 2019-05-23 09:32 | REP ---
Abdominal right upper quadrant ultrasound, stat request: There is no cholelithiasis, gallbladder wall thickening or pericholecystic fluid. The There is no intrahepatic or extrahepatic biliary duct dilatation. The common biliary duct measures 4.8 mm in diameter. The hepatic parenchyma is homogeneous. The visualized areas of the pancreas are unremarkable. Portions of the pancreas are obscured by bowel gas. The right kidney is normal size measuring 11.5 x 3.8 x 5.0 cm. There is no right renal solid or cystic mass. There is no right renal calculus or hydronephrosis. There is no right upper quadrant free fluid. Impression: Essentially negative abdominal right upper quadrant ultrasound. Electronically Signed by Juan Pablo Galvin MD 05/23/2019 09:23 A
== END ==
LOC: M RAD 08:36
PROVIDERS: ATTEND Physician Assistant
DX: R10.11 Right upper quadrant pain (principal)

== ENCOUNTER → 2019-07-06 | Outpatient (REF) | payer BC | LOC: M SFHCWAGY 13:32 | PROVIDERS: ATTEND Nurse Practitioner Family | DX: Z12.4 Encounter for screening for malignant neoplasm of cervix (principal) ==

== ENCOUNTER → 2019-07-12 | Outpatient (REF) | payer BC ==
[2019-07-12 13:52] LABS: BASO % 0.4 % (0.0-1.0); EOS # 0.2 10^3/uL (0.0-0.5); EOS % 3.6 % (0.0-3.0); HEMATOCRIT 38.5 % (36.0-47.0); HEMOGLOBIN 12.5 g/dl (12.0-15.5); LYMPH # 1.4 10^3/uL (1.5-5.0); LYMPH % 29.1 % (24.0-44.0); MEAN CORPUSCULAR HEMOGLOBIN 30.6 pg (27.0-33.0); MEAN CORPUSCULAR HGB CONC 32.5 g/dl (32.0-36.5); MEAN CORPUSCULAR VOLUME 94.4 fl (80.0-96.0); MONO # 0.4 10^3/uL (0.0-0.8); MONO % 8.7 % (0.0-5.0); NEUTROPHILS # 2.7 10^3/uL (1.5-8.5); NEUTROPHILS % 57.8 % (36.0-66.0); PLATELET COUNT, AUTOMATED 322 10^3/uL (150-450); RED BLOOD COUNT 4.08 10^6/uL (4.00-5.40); WHITE BLOOD COUNT 4.7 10^3/uL (4.0-10.0)
[2019-07-12 14:39] LABS: ALBUMIN 3.6 GM/DL (3.2-5.2); ALT/SGPT 31 U/L (12-78); BILIRUBIN,TOTAL 0.3 MG/DL (0.2-1.0); BLOOD UREA NITROGEN 13 MG/DL (7-18); CALCIUM LEVEL 8.9 MG/DL (8.5-10.1); CARBON DIOXIDE LEVEL 29 MEQ/L (21-32); CHLORIDE LEVEL 106 MEQ/L (98-107); CHOLESTEROL LEVEL 175 MG/DL (<200); CHOLESTEROL RISK RATIO 4.268 (<5); CREATININE FOR GFR 0.75 MG/DL (0.55-1.30); FREE T4 1.02 NG/DL (0.76-1.46); GLOMERULAR FILTRATION RATE > 60.0 (>60); GLUCOSE, FASTING 98 MG/DL (70-100); HDL CHOLESTEROL 41 MG/DL (>40); LDL CHOLESTEROL 105 MG/DL (<100); NON-HDL-C 134 MG/DL; SODIUM LEVEL 140 MEQ/L (136-145); TOTAL PROTEIN 6.8 GM/DL (6.4-8.2); TRIGLYCERIDES LEVEL 146 MG/DL (<150)
[2019-07-12 14:41] LABS: TOTAL 25(OH) VITAMIN D 18.4 NG/ML (30.0-100.0)
[2019-07-12 15:28] LABS: HEMOGLOBIN A1c 5.2 %
== END ==
LOC: M LAB REF 13:00
PROVIDERS: ATTEND Nurse Practitioner Family
DX: Z13.9 Encounter for screening, unspecified (principal); Z13.220 Encounter for screening for lipoid disorders; Z00.01 Encounter for general adult medical examination with abnormal findings; E66.09 Other obesity due to excess calories

== ENCOUNTER → 2019-12-25 | Outpatient (REF) | payer BC ==
[2019-12-25 13:01] LABS: BASO % 0.4 % (0.0-1.0); EOS # 0.2 10^3/uL (0.0-0.5); EOS % 3.6 % (0.0-3.0); HEMATOCRIT 40.1 % (36.0-47.0); HEMOGLOBIN 12.8 g/dl (12.0-15.5); LYMPH # 1.5 10^3/uL (1.5-5.0); LYMPH % 33.8 % (24.0-44.0); MEAN CORPUSCULAR HEMOGLOBIN 30.5 pg (27.0-33.0); MEAN CORPUSCULAR HGB CONC 31.9 g/dl (32.0-36.5); MEAN CORPUSCULAR VOLUME 95.7 fl (80.0-96.0); MONO # 0.4 10^3/uL (0.0-0.8); MONO % 8.2 % (0.0-5.0); NEUTROPHILS # 2.4 10^3/uL (1.5-8.5); NEUTROPHILS % 53.6 % (36.0-66.0); PLATELET COUNT, AUTOMATED 318 10^3/uL (150-450); RED BLOOD COUNT 4.19 10^6/uL (4.00-5.40); WHITE BLOOD COUNT 4.5 10^3/uL (4.0-10.0)
[2019-12-25 13:16] LABS: ALBUMIN 3.7 GM/DL (3.2-5.2); ALT/SGPT 24 U/L (12-78); BILIRUBIN,TOTAL 0.5 MG/DL (0.2-1.0); BLOOD UREA NITROGEN 13 MG/DL (7-18); CALCIUM LEVEL 8.8 MG/DL (8.5-10.1); CARBON DIOXIDE LEVEL 28 MEQ/L (21-32); CHLORIDE LEVEL 106 MEQ/L (98-107); CHOLESTEROL LEVEL 170 MG/DL (<200); CHOLESTEROL RISK RATIO 3.695 (<5); CREATININE FOR GFR 0.79 MG/DL (0.55-1.30); GLOMERULAR FILTRATION RATE > 60.0 (>60); GLUCOSE, FASTING 90 MG/DL (70-100); HDL CHOLESTEROL 46 MG/DL (>40); LDL CHOLESTEROL 99 MG/DL (<100); NON-HDL-C 124 MG/DL; POTASSIUM SERUM 4.4 MEQ/L (3.5-5.1); SODIUM LEVEL 141 MEQ/L (136-145); TOTAL PROTEIN 6.8 GM/DL (6.4-8.2); TRIGLYCERIDES LEVEL 127 MG/DL (<150)
[2019-12-25 13:25] LABS: TOTAL 25(OH) VITAMIN D 17.4 NG/ML (30.0-100.0)
== END ==
LOC: M LAB REF 08:35
PROVIDERS: ATTEND Nurse Practitioner Family
DX: Z13.9 Encounter for screening, unspecified (principal); E55.9 Vitamin D deficiency, unspecified; E66.09 Other obesity due to excess calories; Z78.0 Asymptomatic menopausal state

== ENCOUNTER 2020-05-28 01:09 | Emergency (ER) | payer BC ==
[~2020-05-28] VITALS: Ht 160 cm; Wt 88.4 kg
[2020-05-28 01:09] VITALS: BP 142/77
[2020-05-28] MEDS ORDERED: ALLE10TA62 PO (01:41)
[2020-05-28] MEDS ORDERED: BENA25CA4 PO (01:41)
[2020-05-28] MEDS ORDERED: CETIRIZINE (ZyrTEC) 10 MG TAB PO ONE (01:45)
[2020-05-28] MEDS ORDERED: diphenhydrAMINE 50MG CAP PO ONE (01:45)
== END 2020-05-28 02:03 | disposition home or self-care (01) ==
LOC: M ED 01:09
DX: L29.9 Pruritus, unspecified (principal); F17.200 Nicotine dependence, unspecified, uncomplicated

== ENCOUNTER → 2020-05-29 | Outpatient (REF) | payer BC ==
[~2020-05-29] MED LIST changes: +ALLE10TA62 PO; +BENA25CA4 PO
[2020-05-29 17:19] LABS: BASO % 0.4 % (0.0-1.0); EOS # 0.2 10^3/uL (0.0-0.5); EOS % 3.3 % (0.0-3.0); HEMATOCRIT 38.6 % (36.0-47.0); HEMOGLOBIN 12.4 g/dl (12.0-15.5); LYMPH # 1.7 10^3/uL (1.5-5.0); LYMPH % 33.9 % (24.0-44.0); MEAN CORPUSCULAR HEMOGLOBIN 31.2 pg (27.0-33.0); MEAN CORPUSCULAR HGB CONC 32.1 g/dl (32.0-36.5); MONO # 0.4 10^3/uL (0.0-0.8); MONO % 7.4 % (0.0-5.0); NEUTROPHILS # 2.8 10^3/uL (1.5-8.5); NEUTROPHILS % 54.4 % (36.0-66.0); PLATELET COUNT, AUTOMATED 299 10^3/uL (150-450); RED BLOOD COUNT 3.98 10^6/uL (4.00-5.40); WHITE BLOOD COUNT 5.1 10^3/uL (4.0-10.0)
[2020-05-29 17:31] LABS: HEMOGLOBIN A1c 5.2 %
[2020-05-29 17:43] LABS: ALBUMIN 3.7 GM/DL (3.2-5.2); ALT/SGPT 25 U/L (12-78); BILIRUBIN,TOTAL 0.2 MG/DL (0.2-1.0); BLOOD UREA NITROGEN 13 MG/DL (7-18); CALCIUM LEVEL 9.3 MG/DL (8.5-10.1); CARBON DIOXIDE LEVEL 29 MEQ/L (21-32); CHLORIDE LEVEL 104 MEQ/L (98-107); CHOLESTEROL LEVEL 178 MG/DL (<200); CHOLESTEROL RISK RATIO 3.955 (<5); GLOMERULAR FILTRATION RATE > 60.0 (>60); GLUCOSE, FASTING 92 MG/DL (70-100); HDL CHOLESTEROL 45 MG/DL (>40); LDL CHOLESTEROL 107 MG/DL (<100); NON-HDL-C 133 MG/DL; POTASSIUM SERUM 4.5 MEQ/L (3.5-5.1); SODIUM LEVEL 140 MEQ/L (136-145); TOTAL PROTEIN 6.6 GM/DL (6.4-8.2); TRIGLYCERIDES LEVEL 131 MG/DL (<150)
[2020-05-29 17:44] LABS: TOTAL 25(OH) VITAMIN D 17.6 NG/ML (30.0-100.0)
== END ==
LOC: M LAB REF 16:11
PROVIDERS: ATTEND Nurse Practitioner Family
DX: E55.9 Vitamin D deficiency, unspecified (principal); F17.200 Nicotine dependence, unspecified, uncomplicated

== ENCOUNTER 2020-08-21 18:56 | Emergency (ER) | payer BC ==
[~2020-08-21] VITALS: Ht 160 cm; Wt 89.9 kg
[2020-08-21 22:28] LABS: HEMATOCRIT 37.9 % (36.0-47.0); HEMOGLOBIN 12.4 g/dl (12.0-15.5); MEAN CORPUSCULAR HEMOGLOBIN 31.3 pg (27.0-33.0); MEAN CORPUSCULAR HGB CONC 32.7 g/dl (32.0-36.5); MEAN CORPUSCULAR VOLUME 95.7 fl (80.0-96.0); PLATELET COUNT, AUTOMATED 328 10^3/uL (150-450); RED BLOOD COUNT 3.96 10^6/uL (4.00-5.40); WHITE BLOOD COUNT 7.8 10^3/uL (4.0-10.0)
--- NOTE | 2020-08-21 23:57 | REPVR ---
PROCEDURE INFORMATION: Exam: XR Chest Exam date and time: 08/21/2020 11:15 PM Age: 39 years old Clinical indication: Other: SOB TECHNIQUE: Imaging protocol: XR of the chest. Views: 2 views. COMPARISON: CR Abdomen,Flat Upright,PA CHEST 08/10/2016 2:51 PM FINDINGS: Lungs: Unremarkable. No consolidation. Pleural spaces: Unremarkable. No pleural effusion. No pneumothorax. Heart/Mediastinum: Unremarkable. No cardiomegaly. Bones/joints: Unremarkable. IMPRESSION: No acute infiltrates. Electronically signed by: Sebastian Das On 08/21/2020 23:57:35 PM
[2020-08-22] MEDS ORDERED: BENZONATATE 100 MG CAP PO ONE (00:25)
[2020-08-22] MEDS ORDERED: TESS100C PO (00:25)
[2020-08-22 01:16] VITALS: BP 135/85
== END 2020-08-22 01:20 | disposition home or self-care (01) ==
LOC: M ED 18:56
DX: U07.1 COVID-19 (principal)

== ENCOUNTER → 2020-08-26 | Outpatient (REF) | payer BC ==
[~2020-08-26] MED LIST changes: +TESS100C PO
[2020-08-26 17:28] LABS: BASO % 0.6 % (0.0-1.0); EOS # 0.1 10^3/uL (0.0-0.5); EOS % 1.8 % (0.0-3.0); HEMATOCRIT 41.7 % (36.0-47.0); HEMOGLOBIN 13.6 g/dl (12.0-15.5); LYMPH # 2.1 10^3/uL (1.5-5.0); LYMPH % 29.6 % (24.0-44.0); MEAN CORPUSCULAR HEMOGLOBIN 31.3 pg (27.0-33.0); MEAN CORPUSCULAR HGB CONC 32.6 g/dl (32.0-36.5); MEAN CORPUSCULAR VOLUME 95.9 fl (80.0-96.0); MONO # 0.5 10^3/uL (0.0-0.8); MONO % 7.2 % (2.0-8.0); NEUTROPHILS # 4.2 10^3/uL (1.5-8.5); NEUTROPHILS % 59.4 % (36.0-66.0); PLATELET COUNT, AUTOMATED 370 10^3/uL (150-450); RED BLOOD COUNT 4.35 10^6/uL (4.00-5.40); WHITE BLOOD COUNT 7.1 10^3/uL (4.0-10.0)
[2020-08-26 17:56] LABS: APPEARANCE, URINE CLEAR (CLEAR); BACTERIA, URINE AUTO NEGATIVE (NEGATIVE); BILIRUBIN, URINE AUTO NEGATIVE (NEGATIVE); BLOOD, URINE BLOOD NEGATIVE (NEGATIVE); COLOR, URINE STRAW (YELLOW); GLUCOSE, URINE (UA) AUTO NEGATIVE (NEGATIVE); KETONE, URINE AUTO NEGATIVE (NEGATIVE); LEUKOCYTE ESTERASE, URINE AUTO NEGATIVE (NEGATIVE); NITRITE, URINE AUTO NEGATIVE (NEGATIVE); PROTEIN, URINE AUTO NEGATIVE (NEGATIVE); RBC, URINE AUTO 0 /HPF (0-3); SPECIFIC GRAVITY URINE AUTO 1.005 (1.002-1.035); SQUAMOUS EPITHELIAL CELL UR AU 1 /HPF (0-6); UROBILINOGEN, URINE AUTO 0.2 mg/dL (0.0-2.0); WBC, URINE AUTO 1 /HPF (0-3)
[2020-08-26 17:59] LABS: ALBUMIN 4.1 GM/DL (3.2-5.2); ALT/SGPT 23 U/L (12-78); BILIRUBIN,TOTAL 0.4 MG/DL (0.2-1.0); BLOOD UREA NITROGEN 12 MG/DL (7-18); CALCIUM LEVEL 9.6 MG/DL (8.5-10.1); CARBON DIOXIDE LEVEL 30 MEQ/L (21-32); CHLORIDE LEVEL 98 MEQ/L (98-107); CHOLESTEROL LEVEL 235 MG/DL (<200); CHOLESTEROL RISK RATIO 4.351 (<5); CREATININE FOR GFR 0.74 MG/DL (0.55-1.30); FREE T4 0.92 NG/DL (0.76-1.46); GLOMERULAR FILTRATION RATE > 60.0 (>60); GLUCOSE, FASTING 91 MG/DL (70-100); HDL CHOLESTEROL 54 MG/DL (>40); LDL CHOLESTEROL 126 MG/DL (<100); NON-HDL-C 181 MG/DL; POTASSIUM SERUM 4.5 MEQ/L (3.5-5.1); SODIUM LEVEL 136 MEQ/L (136-145); TOTAL PROTEIN 7.6 GM/DL (6.4-8.2); TRIGLYCERIDES LEVEL 277 MG/DL (<150)
[2020-08-26 18:28] LABS: HEMOGLOBIN A1c 5.5 %
[2020-08-27 09:43] LABS: TOTAL 25(OH) VITAMIN D 10.8 NG/ML (30.0-100.0)
== END ==
LOC: M LAB REF 16:17
PROVIDERS: ATTEND Nurse Practitioner Family
DX: Z00.00 Encounter for general adult medical examination without abnormal findings (principal); F17.200 Nicotine dependence, unspecified, uncomplicated; E78.5 Hyperlipidemia, unspecified

== ENCOUNTER → 2020-09-19 | Outpatient (CLI) | payer BC ==
--- NOTE | 2020-09-23 10:26 | ECHO ---
DATE OF PROCEDURE: 09/19/2020 Age: 39 Gender: Female REFERRING PHYSICIAN: DAVID Guerra. REASON FOR STUDY: COVID-19. 2D MEASUREMENTS: IVS 0.84 cm LV 4.0 cm LVPW 0.92 cm LA 3.7 cm Aorta 2.6 cm IVC 1.6 cm DOPPLER MEASUREMENT Peak velocity across the aortic valve 1.3 m/s Peak velocity across the LVOT 0.7 m/s Mitral E 0.86 Mitral A 0.75 with a ratio of greater than 1.0 Maximum tricuspid valve velocity 2.0 m/s 2D COMMENTS: 1. Normal left ventricular size, wall thickness, and normal global left ventricular systolic function. The estimated left ventricular systolic function is 65% to 70%. 2. Normal left atrium. Normal right atrium and right ventricle. 3. The atrial septum appeared to be normal without evidence of defect or shunt. 4. Normal aortic root. 5. No pericardial effusion seen. 6. The aortic valve, mitral valve, tricuspid valve, and pulmonic valve appear to be normal. 7. The inferior vena cava was normal in size, central venous pressure is most likely normal. DOPPLER: It detects trace mitral regurgitation and trace to mild tricuspid regurgitation. The calculated pulmonary artery systolic pressure appeared to be normal. IMPRESSION: 1. Normal global left ventricular systolic and diastolic function. 2. Trace mitral regurgitation. 3. Trace to mild tricuspid regurgitation with a normal calculated pulmonary artery systolic pressure. MTDD
== END ==
LOC: M CARPUL 09-09 11:43
PROVIDERS: ATTEND Pediatrics
DX: Z86.16 Personal history of COVID-19 (principal)

== ENCOUNTER 2021-06-18 18:02 | Emergency (ER) | payer BC ==
[~2021-06-18] VITALS: Ht 160 cm; Wt 93.0 kg
[2021-06-18] MEDS ORDERED: ONDANSETRON 4MG/2ML VIAL IV ONE (18:45)
[2021-06-18 19:25] LABS: BASO % 0.4 % (0.0-1.0); EOS # 0.1 10^3/uL (0.0-0.5); EOS % 1.3 % (0.0-3.0); HEMATOCRIT 36.1 % (36.0-47.0); LYMPH # 1.4 10^3/uL (1.5-5.0); LYMPH % 16.9 % (24.0-44.0); MEAN CORPUSCULAR HEMOGLOBIN 30.6 pg (27.0-33.0); MEAN CORPUSCULAR HGB CONC 33.2 g/dl (32.0-36.5); MEAN CORPUSCULAR VOLUME 92.1 fl (80.0-96.0); MONO # 0.6 10^3/uL (0.0-0.8); MONO % 6.5 % (2.0-8.0); NEUTROPHILS # 6.3 10^3/uL (1.5-8.5); NEUTROPHILS % 74.4 % (36.0-66.0); PLATELET COUNT, AUTOMATED 278 10^3/uL (150-450); RED BLOOD COUNT 3.92 10^6/uL (4.00-5.40); WHITE BLOOD COUNT 8.4 10^3/uL (4.0-10.0)
[2021-06-18 19:42] LABS: ALBUMIN 3.7 GM/DL (3.2-5.2); ALT/SGPT 28 U/L (12-78); BILIRUBIN,DIRECT 0.1 MG/DL (0.0-0.2); BILIRUBIN,TOTAL 0.4 MG/DL (0.2-1.0); BLOOD UREA NITROGEN 12 MG/DL (7-18); CALCIUM LEVEL 9.2 MG/DL (8.5-10.1); CARBON DIOXIDE LEVEL 29 MEQ/L (21-32); CHLORIDE LEVEL 105 MEQ/L (98-107); CREATININE FOR GFR 0.85 MG/DL (0.55-1.30); GLOMERULAR FILTRATION RATE > 60.0 (>60); GLUCOSE, FASTING 102 MG/DL (70-100); LIPASE 57 U/L (73-393); POTASSIUM SERUM 4.1 MEQ/L (3.5-5.1); SODIUM LEVEL 139 MEQ/L (136-145)
[2021-06-18] MEDS ORDERED: ISOVUE-370 76% 100ML VIAL As Ordered ONE (19:57)
[2021-06-18] MEDS ORDERED: SIMETHICONE 80MG CHEW TAB PO ONE (22:05)
[2021-06-18 22:12] VITALS: BP 139/72
[2021-06-18] MEDS ORDERED: KETOROLAC TROMETHAMINE 10 MG TAB PO ONE (22:15)
[2021-06-18] MEDS ORDERED: KETO10TAB PO (22:23)
[2021-06-18] MEDS ORDERED: SIME180C25 PO (22:27)
== END 2021-06-18 23:27 | disposition home or self-care (01) ==
LOC: M ED 18:02
DX: R10.84 Generalized abdominal pain (principal); R14.0 Abdominal distension (gaseous); N83.202 Unspecified ovarian cyst, left side; N88.8 Other specified noninflammatory disorders of cervix uteri; K43.9 Ventral hernia without obstruction or gangrene; D25.9 Leiomyoma of uterus, unspecified; F17.200 Nicotine dependence, unspecified, uncomplicated; Z79.899 Other long term (current) drug therapy
CPT/HCPCS: 74177; 80048; 80076; 81001; 83605; 83690; 84702; 85025; 87086; 96374; 99284; J2405; Q9967

== ENCOUNTER → 2021-11-30 | Outpatient (CLI) | payer BC ==
[~2021-11-30] MED LIST changes: +ALBU2.5V10 INH; +KETO10TAB PO; +SIME180C25 PO
== END ==
LOC: M LABSMTC 10:22
PROVIDERS: ATTEND Anesthesiology
DX: Z01.812 Encounter for preprocedural laboratory examination (principal); Z20.822 Contact with and (suspected) exposure to COVID-19

== ENCOUNTER 2021-12-03 13:49 | Day surgery (SDC) | payer BC ==
[~2021-12-03] VITALS: Ht 160 cm; Wt 92.1 kg
[~2021-12-03 13:49] MED LIST changes: +NS 1,000 ML IV ONE
[2021-12-03] MEDS ORDERED: LIDOCAINE 2% 100MG/5ML SDV (FOR ANES.) As Ordered ONE (14:58)
[2021-12-03] MEDS ORDERED: fentaNYL 100 MCG/2 ML INJECTION As Ordered ONE (14:58)
[2021-12-03] MEDS ORDERED: propofoL 200 MG/20 ML VIAL As Ordered ONE (14:58)
[2021-12-03 15:58] VITALS: BP 131/75
== END 2021-12-03 16:00 | disposition home or self-care (01) ==
LOC: M OPP 13:49
PROVIDERS: ATTEND Internal Medicine Gastroenterology
DX: R14.0 Abdominal distension (gaseous) (principal); R10.13 Epigastric pain; F17.200 Nicotine dependence, unspecified, uncomplicated; Z79.899 Other long term (current) drug therapy
CPT/HCPCS: 43239; 81025; 88305; J3010

== ENCOUNTER → 2021-12-08 | Outpatient (CLI) | payer BC ==
[~2021-12-08] MED LIST changes: -NS 1,000 ML IV ONE
== END ==
LOC: M RAD 12:38
PROVIDERS: ATTEND Nurse Practitioner Family
DX: I83.893 Varicose veins of bilateral lower extremities with other complications (principal)

== ENCOUNTER → 2022-07-15 | Outpatient (REF) | payer BC ==
[2022-07-15 17:01] LABS: LIPASE 24 U/L (12-53)
[2022-07-15 17:02] LABS: AMYLASE 40 U/L (30-118)
[2022-07-15 17:07] LABS: ALBUMIN 3.5 G/DL (3.2-5.2); ALKALINE PHOSPHATASE 63 U/L (46-116); ALT/SGPT 23 U/L (7.0-40); AST/SGOT 18 U/L (<34); BILIRUBIN,TOTAL 0.5 MG/DL (0.3-1.2); BLOOD UREA NITROGEN 14 MG/DL (9-23); CALCIUM LEVEL 8.9 MG/DL (8.5-10.1); CARBON DIOXIDE LEVEL 28 MMOL/L (20-31); CHLORIDE LEVEL 105 MMOL/L (98-107); CREATININE FOR GFR 0.77 MG/DL (0.55-1.30); GLOMERULAR FILTRATION RATE > 60.0 (>58); GLUCOSE, FASTING 90 MG/DL (60-100); POTASSIUM SERUM 4.2 MMOL/L (3.5-5.1); SODIUM LEVEL 139 MMOL/L (136-145); TOTAL PROTEIN 6.3 G/DL (5.7-8.2)
== END ==
LOC: M LAB REF 16:32
PROVIDERS: ATTEND Nurse Practitioner Family
DX: R14.0 Abdominal distension (gaseous) (principal)

== ENCOUNTER → 2022-07-17 | Outpatient (REF) | payer BC | LOC: M PLALAB 08:54 | PROVIDERS: ATTEND Nurse Practitioner Family | DX: Z12.4 Encounter for screening for malignant neoplasm of cervix (principal); R87.612 Low grade squamous intraepithelial lesion on cytologic smear of cervix (LGSIL) ==

== ENCOUNTER → 2022-08-25 | Outpatient (CLI) | payer BC | LOC: M WUC 15:34 | PROVIDERS: ATTEND Physician Assistant | DX: M54.50 Low back pain, unspecified (principal) ==

== ENCOUNTER → 2022-09-21 | Outpatient (CLI) | payer BC | LOC: M WUC 13:34 | PROVIDERS: ATTEND Student in an Organized Health Care Education/Training Program | DX: M54.50 Low back pain, unspecified (principal) ==

== ENCOUNTER → 2023-07-10 | Outpatient (REF) | payer BC | LOC: M LAB REF 13:18 | PROVIDERS: ATTEND Physician Assistant Medical | DX: R05.9 Cough, unspecified (principal) ==

== ENCOUNTER → 2023-07-19 | Outpatient (CLI) | payer BC, SELFPAY | LOC: M WHC 07:15 | PROVIDERS: ATTEND Nurse Practitioner Family | DX: Z12.31 Encounter for screening mammogram for malignant neoplasm of breast (principal) ==

== ENCOUNTER → 2023-07-19 | Outpatient (REF) | payer OTHER, SELFPAY | LOC: M SFHCWAGY 12:46 | PROVIDERS: ATTEND Nurse Practitioner Family | DX: Z12.4 Encounter for screening for malignant neoplasm of cervix (principal) ==

== ENCOUNTER → 2023-08-05 | Outpatient (REF) | payer OTHER ==
[2023-08-05 17:48] LABS: AMORPHOUS SEDIMENT SMALL (NEGATIVE); APPEARANCE, URINE HAZY (CLEAR); BACTERIA, URINE AUTO NEGATIVE (NEGATIVE); BILIRUBIN, URINE AUTO NEGATIVE (NEGATIVE); BLOOD, URINE BLOOD NEGATIVE (NEGATIVE); COLOR, URINE YELLOW (YELLOW); GLUCOSE, URINE (UA) AUTO NEGATIVE (NEGATIVE); KETONE, URINE AUTO NEGATIVE (NEGATIVE); LEUKOCYTE ESTERASE, URINE AUTO 1+ (NEGATIVE); MUCUS, URINE SMALL (NEGATIVE); NITRITE, URINE AUTO NEGATIVE (NEGATIVE); PROTEIN, URINE AUTO NEGATIVE (NEGATIVE); RBC, URINE AUTO 0 /HPF (0-3); SPECIFIC GRAVITY URINE AUTO 1.021 (1.002-1.035); SQUAMOUS EPITHELIAL CELL UR AU 1 /HPF (0-6); UROBILINOGEN, URINE AUTO 0.2 mg/dL (0.0-2.0); WBC, URINE AUTO 47 /HPF (0-3)
== END ==
LOC: M SFHCWAGY 16:55
PROVIDERS: ATTEND Nurse Practitioner Family
DX: R30.0 Dysuria (principal)

== ENCOUNTER → 2023-09-08 | Outpatient (REF) | payer OTHER ==
[2023-09-08 17:20] LABS: ALBUMIN 3.8 G/DL (3.2-5.2); ALKALINE PHOSPHATASE 77 U/L (46-116); ALT/SGPT 37 U/L (7.0-40); AST/SGOT 20 U/L (<34); BILIRUBIN,TOTAL 0.4 MG/DL (0.3-1.2); BLOOD UREA NITROGEN 19 MG/DL (9-23); CALCIUM LEVEL 9.5 MG/DL (8.5-10.1); CARBON DIOXIDE LEVEL 29 MMOL/L (20-31); CHLORIDE LEVEL 106 MMOL/L (98-107); CHOLESTEROL LEVEL 176 MG/DL (<200); CHOLESTEROL RISK RATIO 3.48 (<5); CREATININE FOR GFR 0.74 MG/DL (0.55-1.30); GLOMERULAR FILTRATION RATE > 60.0 (>58); GLUCOSE, FASTING 92 MG/DL (60-100); HDL CHOLESTEROL 50.5 MG/DL (>40); LDL CHOLESTEROL 98.9 MG/DL (<100); NON-HDL-C 125.5 MG/DL; POTASSIUM SERUM 4.3 MMOL/L (3.5-5.1); SODIUM LEVEL 141 MMOL/L (136-145); THYROID STIMULATING HORMONE 2.319 uIU/ML (0.55-4.78); TOTAL PROTEIN 6.7 G/DL (5.7-8.2); TRIGLYCERIDES LEVEL 133 MG/DL (<150)
[2023-09-08 17:21] LABS: TOTAL 25(OH) VITAMIN D 23.4 NG/ML (20.0-100.0)
[2023-09-08 18:05] LABS: Trichomonas vaginalis (AMP) NOT DETECTED (NEGATIVE)
[2023-09-08 18:29] LABS: GC DNA AMPLIFICATION NEGATIVE (NEGATIVE)
== END ==
LOC: M LAB REF 16:11
PROVIDERS: ATTEND Physician Assistant
DX: Z11.9 Encounter for screening for infectious and parasitic diseases, unspecified (principal); E55.9 Vitamin D deficiency, unspecified; E66.9 Obesity, unspecified

== ENCOUNTER 2024-03-04 00:45 | Emergency (ER) | payer OTHER ==
[~2024-03-04] VITALS: Ht 160 cm; Wt 96.0 kg
[~2024-03-04 00:45] MED LIST changes: -SIME180C25 PO; +SIME1CAP4 PO
[2024-03-04] MEDS: IBUPROFEN 800 MG TAB PO ONE (04:14)
[2024-03-04] MEDS: BOOSTRIX VACCINE (TETANUS/DIPHTH/ACEL. PERTUSSIS) 0.5ML SYR IM ONE (05:21)
[2024-03-04] MEDS: LIDOCAINE 1% MDV 20ML VIAL SC ONE (05:21)
[2024-03-04 05:50] VITALS: BP 118/61; TEMP 97.4; O2SAT 98
== END 2024-03-04 05:51 | disposition home or self-care (01) ==
LOC: M ED 00:45
DX: S61.211A Laceration without foreign body of left index finger without damage to nail, initial encounter (principal); Y92.9 Unspecified place or not applicable; Y93.9 Activity, unspecified; Y99.9 Unspecified external cause status; Z23 Encounter for immunization; Z79.51 Long term (current) use of inhaled steroids

== ENCOUNTER → 2024-09-01 | Outpatient (CLI) | payer OTHER | LOC: M WUC 13:38 | PROVIDERS: ATTEND Student in an Organized Health Care Education/Training Program | DX: R05.1 Acute cough (principal) ==

== ENCOUNTER → 2024-09-04 | Outpatient (REF) | payer OTHER | LOC: M LAB REF 17:35 | PROVIDERS: ATTEND Student in an Organized Health Care Education/Training Program | DX: R35.0 Frequency of micturition (principal) ==